=== PATIENT | male | born 1970 | race Two or more races ===

== ENCOUNTER → 2020-06-23 13:32 | Outpatient (BNVA) | payer OTHER, SELFPAY | PROVIDERS: PCP Internal Medicine; Visit Provider Internal Medicine | DX: R07.2 Precordial pain (principal); E11.8 Type 2 diabetes mellitus with unspecified complications; I10 Essential (primary) hypertension; E78.5 Hyperlipidemia, unspecified | CPT/HCPCS: 93005; 99202 ==

== ENCOUNTER → 2020-07-12 08:09 | Outpatient (REF) | payer OTHER, SELFPAY ==
--- NOTE | ~2020-07-12 | NM_ITS ---
Myocardial perfusion study Indication: Precordial chest pain to evaluate for myocardial ischemia Technique: The patient was brought in for a Lexiscan perfusion study on 07/12/2020. Patient performed low-level exercise and was injected 0.4 mg of Lexiscan intravenously. Within a minute of injection, 30 mCi of sestamibi was given intravenously. Images were obtained using the SPECT gamma camera interlaced with the gating device. Images were obtained in supine position. Resting perfusion study was performed on 07/13/2020. Patient was administered 30 mCi of sestamibi intravenously at rest. Images were then obtained in supine position. Images obtained with and without CT attenuation. Total DLP 100 mGy-cm. Images were processed with the software and compared side to side in short axis, horizontal long axis and vertical long axis views. Findings: The stress perfusion study showed non attenuated images show minimally reduced uptake in the basal inferior wall of the LV myocardium. Remainder of the LV myocardium is normally perfused. Attenuation corrected images show minimal thinning of the distal anterior and mildly reduced uptake in the apical wall of the LV myocardium.. The gated study shows normal LV systolic function with calculated LVEF of 56%. LV cavity is normal in size. The gated study shows normal systolic wall thickening and contraction of segments. Resting study shows non attenuated images show no change in perfusion pattern compared to stress study. Gating at rest reveals normal systolic wall motion with ejection fraction at 54%. The findings are consistent with normal myocardial perfusion. NM/NM maria del rosario perf SPECT rest & str Impression: 1. Myocardial perfusion imaging study shows normal myocardial perfusion 2. Gated LVEF is 56% 3. Transient ischemic dilatation not present EKG is nondiagnostic for ischemia MIBI
--- NOTE | 2020-07-12 08:12 | CA_ITS ---
Acquisition Time: 2020-07-12 08:19:48 Total Exercise Time: 00:02:00 Test Indications: Chest Pain Medications: ASA HCTZ OMEPRAZOLE FARXIGA LORATADINE ROSUVASTATIN COLCHICINE Protocol: LEXISCAN Max HR: 099 BPM 58% of Pred: 169 BPM Max BP: 122/070 mmHG Max Work Load: 1.0 METS Pharmacological stress test using Lexiscan while sitting and kicking his feet. Pt tolerated well, reports chest thightness after Lexiscan injection that resolves in recovery. EKG with no arrhythmia, Non-diagnostic for ischemia. Nuclear images to follow. Normotensive response to test. Test reviewed with Dr. Kaba. Referred By: Alberto Riddle Overread By: Katty Rodriguez NP
== END ==
LOC: HO.CARD 08:09
PROVIDERS: PCP Internal Medicine; Visit Provider Internal Medicine
DX: R07.2 Precordial pain (principal)
CPT/HCPCS: 78452; 93016; 93017; 93018; A9500; J0280; J2785

== ENCOUNTER → 2020-08-17 08:18 | Outpatient (REF) | payer OTHER, SELFPAY ==
--- NOTE | 2020-08-17 08:21 | CA_ITS ---
Transthoracic Echocardiogram Patient (Last, First, Middle): Bj Myers, Gender: Male Date of : 1970 Age: 50 Procedure Date: 08/17/2020 Procedure Type: Transthoracic Echocardiogram Location: OP Height: 167.64 cm Weight: 81.65 kg BSA: 1.91 m2 Heart Rate: bpm BP: 114 / 74 mmHg Regulator Inspector: MICHELLE Olsen MD: Alberto Riddle MD Bale Tie Machine Operator: Kumar Kaba MD Symptoms: R07.2 - Precordial pain Study Quality: Good ECG Rhythm: Sinus Conclusions: - Normal study Findings Left Ventricle Normal left ventricular size, thickness, and systolic function. The visually estimated ejection fraction is between 60-65%. Spectral Doppler is indicative of a normal filling pattern. Right Ventricle Normal right ventricular cavity size and systolic function. Atria Both atria are normal in size. There is no evidence of interatrial shunt. Aortic Valve Normal aortic valve structure and function. There is no aortic valve stenosis. There is no aortic valve regurgitation. Mitral Valve Normal mitral valve structure and function. There is trace mitral valve regurgitation. There is no mitral valve stenosis. Pulmonic Valve The pulmonic valve was not well visualized. Tricuspid Valve Normal tricuspid valve structure. There is trace tricuspid valve regurgitation. Great Vessels All visible segments of the aorta are normal in size. The pulmonary artery was not well visualized. Venous The inferior vena cava is normal in size and collapses greater than 50% with inspiration. Pericardium/Pleural There is no evidence of pericardial effusion. Prior Study Comparison No prior study available for comparison. Measurements 2D Linear Measurements RVIDd: 2.80 RVIDd Index: 1.47 IVSd: 1.20 0.6-0.9/0.6-1.0 cm LVIDd: 4.57 3.9-5.3/4.2-5.9 cm LVIDd Index: 2.39 2.4-3.2/2.2-3.1 cm/m2 LVIDs: 3.23 2.0-3.6 cm LVPWd: 0.87 0.7-1.1 cm Ao Root: 3.30 2.1-3.5 cm LA Diam: 2.90 2.7-3.8/3.0-4.0 cm LAIDs Index: 1.52 1.5-2.3 cm/m2 LV Mass: 204.79 67-162/88-224 g LV Mass Index: 107.22 43-95/49-115 g/m2 LVOT Diam: 2.10 3.0+(-)1.3 cm 2D Systolic Function EF 4C: 57.60 >55% EF 2C: 55.90 >55% Mitral Valve MV Pk E: 0.70 MV PK A: 0.52 MV Decel Time: 192.00 E/A: 1.30 E'Lateral: 10.20 E'Medial: 6.42 E/E' Med: 10.90 E/E' Lat: 6.80 Aortic Valve AoV Pk Errol: 1.34 AoV Mn Errol: 0.92 AoV VTI: 0.23 AoV Pk Grad: 7.00 Aov Mn Grad: 4.00 PRISCILLA Cont.VTI: 2.43 LVOT LVOT Pk Errol: 0.83 LVOT Mn Errol: 0.54 LVOT VTI: 0.16 LVOT Pk Grad: 3.00 LVOT Mn Grad: 1.00 LVOT Diam: 2.10 LVOT Area: 3.46 Diastolic Function MV Pk E: 0.70 MV Pk A: 0.52 E/A: 1.30 E'Medial: 6.42 E/E' Med: 10.90 E' Laterial: 10.20 E/E' Lat: 6.80 Tricuspid Valve RA Press: 3.00 Great Vessels Aorta Ao Root-2D: 3.30 2.0-3.7 cm Ao Asc: 3.10 2.1-3.4 cm Ao Arch: 2.70 Updated in Other Vendor System with Status of Final Kumar Kaba MD electronically signed on 08/18/2020 2:18:03 PM with status of Final
== END ==
LOC: HO.CARD 08:18
PROVIDERS: Visit Provider Internal Medicine
DX: R07.2 Precordial pain (principal)
CPT/HCPCS: 93306

== ENCOUNTER 2020-08-23 07:54 | Outpatient (REF) | payer OTHER, SELFPAY ==
--- NOTE | 2020-08-23 13:45 | MHC.AU.ANO ---
Adult Audiological Evaluation Date of Visit: 08/23/20 Group Chief Operator Used: Not Applicable Reason for Appointment: Audiologic evaluation due to decreased hearing and blocked/pain sensation of the right ear. Bj reports this sensation has developed within the past 3 years and is not sure if it is progressive Does patient feel they have a hearing loss?: Yes If Yes, Which Ear?: Right Ear Has hearing been tested previously?: Yes Previous Hearing Test Results: [facility] - Results are not available for review Hearing Handicap Inventory: HHIE SCORE: 22 Based on HHIE score, patient has: Mild to moderate perceived hearing handicap Ear History: Recent Ear Pain: Right greater than left Family History of Hearing Loss?: Yes: Mother History of Ear Wax Buildup: Occasional both ears Bothersome Tinnitus/Ringing/Noises in Ears: Right greater than left Blocked/Full Sensation in Ear(s): Right greater than left History of occupational noise exposure?: Yes: [employer] History: History: No Medical History: Medical History: Diabetes, Heart Problems, High Blood Pressure, Migraines, Seizure Disorder, Stroke Medication List: Trulicity, Proventil HFA, EpiPen, Fluticasone Proplon/Salmeterol, Loratadine, Lantus Solostar, Gabapentin, Multivitamin, Omeprazole, Hydrochlorothiazide, Rosuvastatin Calcium, Farxiga, Verapamil HCI, Colchicine Otoscopy: Right Ear: Dark area on left lower quadrant of tympanic membrane Left Ear: Unremarkable Tympanometry: Tympanometry performed due to: To assess integrity of the middle ear system Right Ear: Hypercompliant Middle Ear System (Type Ad) Left Ear: Normal Middle Ear System (Type A) Acoustic Reflexes: Diagnostic equipment was not available Ipsilateral Probe Right: 500 Hz: Absent 1000 Hz: Absent 2000 Hz: Absent 4000 Hz: Absent Probe Left: 500 Hz: Present 1000 Hz: Present 2000 Hz: Present 4000 Hz: Present Otoacoustic Emissions Frequency Range Used: 1.6-8 kHz Right Ear Results: Present 1600 & 2000 Hz. Reduced 6880-2717 Hz. Absent 8000 Hz Analysis: Present emissions suggest normal cochlear function Reduced/absent emissions may be consequence of middle ear dysfunction Left Ear Results: Present Emissions Analysis: Present emissions suggest normal cochlear function Rules out peripheral hearing loss greater than a mild degree Results are consistent with degree and configuration of hearing loss Hearing Evaluation: Transducer(s) Used: Insert Earphones Bone Conduction Method: Conventional Audiometry Stimuli Used: Pure Tones Right Ear: Description of Hearing: Normal to borderline normal hearing thresholds with a conductive component noted at 3000 Hz Left Ear: Description of Hearing: Normal hearing thresholds through all frequencies Speech Recognition Threshold (SRT): Method Used: Monitored Live Voice Stimuli Used: Spondee Words Right Ear: 15 dB HL Left Ear: 10 dB HL Word Discrimination: Method: Recorded Lists Word Lists Used: NU-6 Right Ear: 84% at 55 dB HL Left Ear: 96% at 50 dB HL Recommendations: Referral to Ear, Nose, and Throat is recommended due to Otoscopic results for the right ear and Bj' symptoms. Audiological re-evaluation in 6 months. Will send a reminder card. Diagnosis: Primary Diagnosis: H69.91 Unspecified Eustachian Tube Dysfunction, Right Ear Secondary Diagnosis: H93.293 Abnormal Auditory Perception Services Performed: Comprehensive Audiological Evaluation (CPT 14020) Diagnostic Otoacoustic Emissions (CPT 75893, 26+TC) Tympanometry (CPT 57458) Signature: Provider: Karma Morgan, CCC-A
== END 2020-08-23 07:55 | disposition home or self-care (01) ==
LOC: HO.SH 07:54
PROVIDERS: Visit Provider Registered Nurse Community Health
DX: H69.91 Unspecified Eustachian tube disorder, right ear (principal); H93.293 Other abnormal auditory perceptions, bilateral
CPT/HCPCS: 92557; 92567; 92588

== ENCOUNTER → 2020-10-13 07:54 | Outpatient (BNVA) | payer OTHER, SELFPAY | PROVIDERS: Visit Provider Orthopaedic Surgery | DX: S66.322D Laceration of extensor muscle, fascia and tendon of right middle finger at wrist and hand level, subsequent encounter (principal) | CPT/HCPCS: 99202 ==

== ENCOUNTER 2020-10-19 08:14 | Day surgery (SDC) | payer OTHER, SELFPAY ==
--- NOTE | 2020-10-18 09:09 | HO.ANESPROP2 ---
Documented by User: Adela Morris 10/18/20 09:13 HPI - Anesthesia Eval Consult details Narrative: 50yo M for Right Extensor Tendon Repair middle finger PMFSH Active Problems Active Problems: All Active Problems (Updated 10/13/20 @ 08:47 by Lena Viramontes MD) Laceration of extensor muscle, fascia and tendon of right middle finger at wrist and hand level, sequela (Acute) Other and unspecified hyperlipidemia (Acute) Essential hypertension (Acute) Type 2 diabetes mellitus with unspecified complications (Acute) Precordial chest pain (Acute) Past Medical History Medical History Asthma Essential hypertension Other and unspecified hyperlipidemia Type 2 diabetes mellitus with unspecified complications Family History Family History Father Heart disease Mother No problems noted. Paternal Grandfather Heart disease Surgical History Surgical History No pertinent past surgical history Social History Social History Patient Tobacco Use Status: Never used Tobacco Are you DNR?: No Advance Directives: No Advance Directives Information Provided: Yes Current occupational status: unemployed Current occupation: right hand/ Meds Allergies Allergy/AdvReac Type Severity Reaction Status Date / Time lisinopril [LISINOPRIL] Allergy Severe SWELLING, Verified 10/19/20 08:48 edema Home Medications Medication Instructions Recorded Confirmed Last Taken Type aspirin 81 mg tablet,delayed 81 mg PO DAILY 06/23/20 06/23/20 10/18/20 06:00 History release colchicine 0.6 mg capsule 0.6 mg PO BID 06/23/20 06/23/20 Unknown History dapagliflozin 10 mg tablet 10 mg PO DAILY 06/23/20 06/23/20 Unknown History (Farxiga) hydrochlorothiazide 25 mg tablet 25 mg PO DAILY 06/23/20 06/23/20 Unknown History loratadine 10 mg tablet (Allergy 10 mg PO DAILY 06/23/20 06/23/20 Unknown History Relief (loratadine)) multivitamin 1 tab PO DAILY 06/23/20 06/23/20 Unknown History omeprazole 20 mg capsule,delayed 20 mg PO DAILY 06/23/20 06/23/20 Unknown History release rosuvastatin 20 mg tablet 20 mg PO DAILY 06/23/20 06/23/20 Unknown History verapamil 300 mg capsule 24hr 300 mg PO BEDTIME 06/23/20 06/23/[address],ext.release Exam Exam Date and Time: October 18, 2020 0909 Narrative Narrative: EKG 06/2020 sinus rhythm at 82/Min; nonspecific ST-T changes; normal IN/borderline prolonged QTc MIBI 07/2020 NM maria del rosario perf SPECT rest & str Impression: ? 1.? Myocardial perfusion imaging study shows normal myocardial perfusion 2.? Gated LVEF is 56% 3. Transient ischemic dilatation not present ? EKG is nondiagnostic for ischemia ? ECHO 08/2020 Conclusions: - Normal study ? Assessment and Plan Assessment Anesthesia Assessment: Chart Reviewed Documented by User: Hira Ahumada MD 10/19/20 11:53 [facility] Past Medical History Medical History Asthma Essential hypertension Other and unspecified hyperlipidemia Type 2 diabetes mellitus with unspecified complications Family History Family History Father Heart disease Mother No problems noted. Paternal Grandfather Heart disease Family history of problems with anesthesia: No Surgical History Surgical History No pertinent past surgical history History of Problems with Anesthesia: No Social History Social History Patient Tobacco Use Status: Never used Tobacco Are you DNR?: No Advance Directives: No Advance Directives Information Provided: Yes Current occupational status: unemployed Current occupation: right hand/ Meds Allergies Allergy/AdvReac Type Severity Reaction Status Date / Time lisinopril [LISINOPRIL] Allergy Severe SWELLING, Verified 10/19/20 08:48 edema Home Medications Medication Instructions Recorded Confirmed Last Taken Type aspirin 81 mg tablet,delayed 81 mg PO DAILY 06/23/20 06/23/20 10/18/20 06:00 History release colchicine 0.6 mg capsule 0.6 mg PO BID 06/23/20 06/23/20 Unknown History dapagliflozin 10 mg tablet 10 mg PO DAILY 06/23/20 06/23/20 Unknown History (Farxiga) hydrochlorothiazide 25 mg tablet 25 mg PO DAILY 06/23/20 06/23/20 Unknown History loratadine 10 mg tablet (Allergy 10 mg PO DAILY 06/23/20 06/23/20 Unknown History Relief (loratadine)) multivitamin 1 tab PO DAILY 06/23/20 06/23/20 Unknown History omeprazole 20 mg capsule,delayed 20 mg PO DAILY 06/23/20 06/23/20 Unknown History release rosuvastatin 20 mg tablet 20 mg PO DAILY 06/23/20 06/23/20 Unknown History verapamil 300 mg capsule 24hr 300 mg PO BEDTIME 06/23/20 06/23/[address],ext.release Exam Airway Mallampati Class: II TM Dist: >3cm Neck ROM: Full Loose/Missing/Broken Teeth: No Heart: RRR Assessment and Plan Assessment Anesthesia Assessment: Anesthesia Plan Discussed Final Anesthetic Review Family History of Problems with Anesthesia: No History of Problems with Anesthesia: No NPO: Yes ASA Class: II Final Preanesthetic Review: No Changes in Pt Med Stat, Meds/Allgs Chart Reviewed, Consent Obtained/Reviewed and Anes Risks/Benef Reviewed Patient Risk: Low Procedure Risk: Low Anesthetic Plan Anesthetic Plan: GA and Regional Block Disposition: Standard PACU
[2020-10-19] VITALS (7 sets, daily range): BP systolic 121–138; BP diastolic 79–95; PULSE 67–74; RESP 12–18; TEMP 36.6–36.8; O2SAT 94–96; BMI 28.2
[2020-10-19 09:13] LABS: Glucose, Whole Blood 151 mg/dL (60-115)
[2020-10-19] MEDS: Lactated Ringers 1,000 ML 100 ML IVCONT (09:22)
--- NOTE | 2020-10-19 11:45 | MHC.SHP ---
Pre-Procedural Eval Section A Date of Service: 10/19/20 The patient is an INPATIENT: No Changes since office visit: No Cold of Flu in the past 2 weeks, No New Medical Problems, No Changes in Medication and No Patient answered all questions The History & Physical has been completed within 30 days and I have reviewed it.: Yes Section B Chief Complaint: laceration of extensor muscle r middle finger Allergies: Allergies Allergy/AdvReac Type Severity Reaction Status Date / Time lisinopril [LISINOPRIL] Allergy Severe SWELLING, Verified 10/19/20 08:48 edema Plan I have reviewed the history and physical and performed a pertinent physical examination on my patient. No changes have occurred unless specified.
--- NOTE | 2020-10-19 11:45 | W.PM.OPN ---
Operative Note Operative Note Date of Service: 10/19/20 Narrative: Operative Note Narrative: Preop diagnosis: 1. Right middle finger extensor tendon laceration at the MCP joint Postop diagnosis: Same Procedure: 1. Right middle finger extensor tendon repair at the MCP joint 2. Right middle finger extensor tendon tenolysis and debridement of scar tissue to facilitate secondary repair Surgeon: Lena Viramontes MD Anesthesia: Mac plus regional block Findings: The EDC tendon to the middle finger was lacerated at the proximal aspect of the extensor expansion. The tendon both proximally and distally was encased in scar tissue with a gap of approximately 1.2 cm between the tendon ends. The scar tissue was also adherent to the underlying capsule. There had been a rent in the capsule, and exploration of the joint showed a chondral lesion measuring approximately 5 mm in diameter over the dorsal proximal most aspect of the 3rd metacarpal head. This did not appear to involve the primary weight-bearing aspect of the metacarpal head. Implants: None Tourniquet time: 36 minutes EBL: 5.0 ml Specimen: None Drains: None Complications: None Disposition: Brought to the recovery room in stable condition Plan: Follow-up in 10-14 days for wound check, suture removal and placement in a finger spica cast with the MCP joint of the long finger at about 30?. The 4th and 5th MCP joints can be held in slightly more flexion. Anticipate discontinuance of the cast at 6 weeks, followed by outpatient hand therapy. Indications: The patient is a 50 year old man with a right middle finger extensor tendon laceration at the MCP joint that occurred approximately 2 months ago. . The risks and benefits of operative treatment, including but not limited to risk of damage to blood vessels, nerves, tendons, infection, recurrence, persistent pain or numbness, incomplete resolution of preoperative symptoms, or need for further surgery were discussed with the patient and they wished to proceed with surgery. Procedure: Once consent was obtained patient was brought back to the operating suite and placed in the operating table in a supine position. A regional block was performed by the anesthesia team. Perioperative antibiotics and anesthesia was administered by the anesthesia team. A tourniquet was applied to the proximal aspect of the right upper extremity and the limb was prepped and draped in a standard surgical fashion. The limb was elevated exsanguinated with Esmarch bandage and the tourniquet inflated to 250 mm of mercury for a total tourniquet time of 36 minutes. And incision was made utilizing the 1.5 cm oblique laceration scar over the dorsal aspect of the 3rd MCP joint. This was then extended longitudinally and distally from the ulnar edge of the laceration and longitudinally and proximally from the radial edge of the laceration. Incisions were made through the skin to the subcutaneous tissues using a 15. Blade. Careful dissection was they down to the level of the EDC tendon and extensor expansion over the MCP joint to the middle finger. There appeared to be a 1.2 cm gap between the lacerated tendon and its distal aspect. This laceration occurred in the proximal aspect of the extensor expansion. There was abundant scar tissue between the 2 ends of the tendon. I sharply debrided the tendon ends of this scar tissue and removed it. I developed the plane between the 3rd MCP joint capsule and the overlying extensor expansion. This injury caused a rent in the dorsal aspect of the 3rd MCP joint capsule. This was explored and the 3rd MCP joint was evaluated. There was an evident injury to the proximal dorsal chondral surface of the 3rd metacarpal head. It measured approximately 5 mm in diameter but was not within the primary look weight-bearing aspect of the 3rd metacarpal head. The weight-bearing aspect of the 3rd metacarpal head was evaluated and I did not see any injury to the surface. At this point the 3rd MCP joint and the wound was copiously irrigated with normal saline. I reapproximated the edges of the 3rd MCP joint capsule with some 4-0 Vicryl suture. I then performed a secondary repair of the EDC tendon to the middle finger using a 4 core suture technique and some 3 0 Ethibond suture material. This was reinforced with a running 5 0 Prolene stitch. I was very satisfied with our repair. The EDC tendon to the middle finger was noted to be slightly tighter than the adjacent EDC tendons, and it is felt that this will stretch out with hand therapy exercises which will begin after 6 weeks of healing. At this point the tourniquet was deflated and hemostasis obtained with a brief period of local pressure and bipolar electrocautery. The wound was copiously irrigated with normal saline. The skin edges were reapproximated with 5-0 nylon suture. The wound was infiltrated with some 0.5% plain Marcaine for postop pain control and a sterile dressing volar splint holding the index ring and small finger MCP joints in about 20? of flexion. The patient appears to have tolerated the procedure well and with no complications. All digits were well vascularized conclusion of the case.
== END 2020-10-19 14:30 ==
LOC: HO.SSS 08:14
PROVIDERS: PCP Internal Medicine; Visit Provider Orthopaedic Surgery
PROC: (CPT 26418; principal; 2020-10-19 10:10)
DX: S66.322A Laceration of extensor muscle, fascia and tendon of right middle finger at wrist and hand level, initial encounter (principal); W26.8XXA Contact with other sharp object(s), not elsewhere classified, initial encounter; Y93.89 Activity, other specified; Y92.59 Other trade areas as the place of occurrence of the external cause; Y99.9 Unspecified external cause status; J45.909 Unspecified asthma, uncomplicated; I10 Essential (primary) hypertension; E78.5 Hyperlipidemia, unspecified; E11.9 Type 2 diabetes mellitus without complications; Z79.84 Long term (current) use of oral hypoglycemic drugs; Z79.82 Long term (current) use of aspirin; Z79.899 Other long term (current) drug therapy; Z88.8 Allergy status to other drugs, medicaments and biological substances
CPT/HCPCS: 26418; 26445; 82947; J0690; J2250; J2405; J3010

== ENCOUNTER → 2020-10-27 10:29 | Outpatient (BNVA) | payer OTHER, SELFPAY | PROVIDERS: Visit Provider Orthopaedic Surgery | DX: S66.32 Laceration of extensor muscle, fascia and tendon of other and unspecified finger at wrist and hand level (principal) | CPT/HCPCS: 99212 ==

== ENCOUNTER → 2020-11-03 08:01 | Outpatient (BNVA) | payer OTHER, SELFPAY | PROVIDERS: PCP Internal Medicine; Visit Provider Orthopaedic Surgery | DX: S66.322D Laceration of extensor muscle, fascia and tendon of right middle finger at wrist and hand level, subsequent encounter (principal) | CPT/HCPCS: 99212 ==

== ENCOUNTER → 2020-12-01 08:16 | Outpatient (BNVA) | payer OTHER, SELFPAY | PROVIDERS: Visit Provider Orthopaedic Surgery | DX: S66.322D Laceration of extensor muscle, fascia and tendon of right middle finger at wrist and hand level, subsequent encounter (principal) | CPT/HCPCS: 99212 ==

== ENCOUNTER 2020-12-07 07:30 | Outpatient (RCR) | payer OTHER, SELFPAY ==
--- NOTE | 2020-11-29 08:05 | MHC.OT.OP ---
[address] [phone] F: [phone] Occupational Therapy Progress Note Diagnosis: R D3 MCP Zone 5 EDC laceration, post-op repair Date of Surgery: 10/19/20 Date of Evaluation: 11/11/20 Treatments to Date: 6 Subjective: It's going well Pain Score: 0 Pain Location: Right volar D3 MCP - denies pain Objective Measures: WFL Status: Progressing Assessment: 6 weeks post-op. Healing well with minimal edema localized to dorsal D3 MCP. Pt has had good compliance w/ orthosis wear and protection of repair, now weaning from orthosis and able to complete full active ROM. He is motivated w/ good follow through w/ HEP, scar management and protection of repair. Short Term Goals: Ind w/ orthosis management (met) Ind w/ HEP (met) Good protection of repair (met) Ind w/ scar management techniques (met) Pt to demo active ext to 0 (met) Stretch Box Tender Goals: Pt to utilize right hand for most ADL Full digit flex tip-DPC (met) Pt to maintain full active digit extension when needed for daily activities Quickdash score 30 Frequency and Duration: The patient will be seen 1x/wk for 2 wks Treatment Plan: Therapeutic Exercise Therapeutic Activity Home Exercise Program Patient Education Desensitization/Sensory Re-ed Edema Control ADL Training Paraffin Fluidotherapy MHP Cold Packs Soft Tissue Mobilization Kinesiotaping Paper tape for scar management Electronically Signed By: Arianne Schaffer OTR/L
--- NOTE | 2020-12-07 07:47 | MHC.OT.DC ---
[address] [phone] F: [phone] Occupational Therapy Discharge Note Provider: Dr Viramontes Diagnosis: R D3 MCP Zone 5 EDC laceration, post-op repair Date of Surgery: 10/19/20 Date of Evaluation: 11/11/20 Date of Discharge: 12/07/20 Treatments to Date: 8 Discharge Status: Achieved Goals Improved Function Independent with HEP Discharge Summary: 7 weeks post-op, doing very well. Orthosis discharged and patient able to participate in most daily activities, still avoiding heavy lifting at this time. He is motivated w/ good follow through w/ HEP, scar management and protection of repair; good range and day to day use of hand w/ very mild pain only occasionally. Electronically Signed By: Arianne Schaffer OTR/L Please Sign and return to therapist, thank you for your referral.
== END 2020-12-07 07:56 | disposition home or self-care (01) ==
LOC: HO.OT 07:30
PROVIDERS: Visit Provider Orthopaedic Surgery
DX: S66.32 Laceration of extensor muscle, fascia and tendon of other and unspecified finger at wrist and hand level (principal)
CPT/HCPCS: 29125; 97110; 97140; 97165; 97530; 97760

== ENCOUNTER → 2021-12-13 14:15 | Outpatient (BNVA) | payer OTHER, SELFPAY | PROVIDERS: PCP Internal Medicine; Visit Provider Internal Medicine | DX: R07.2 Precordial pain (principal); E11.8 Type 2 diabetes mellitus with unspecified complications; I10 Essential (primary) hypertension; E78.5 Hyperlipidemia, unspecified; Z79.84 Long term (current) use of oral hypoglycemic drugs; Z79.899 Other long term (current) drug therapy | CPT/HCPCS: 93005; 99212 ==

== ENCOUNTER → 2022-01-06 07:42 | Outpatient (REF) | payer OTHER, SELFPAY ==
--- NOTE | ~2022-01-06 | NM_ITS ---
Exercise Myocardial perfusion study Indication: Precordial chest pain to evaluate for myocardial ischemia Technique: The patient was brought in for an exercise perfusion study on 01/06/2022. Patient performed exercise as per Ovidio protocol and was injected 25 mCi of sestamibi was given intravenously one target HR was achieved. Images were obtained using the SPECT gamma camera interlaced with the gating device. Images were obtained in supine position. Resting perfusion study was performed on 01/10/2022. Patient was administered 25 mCi of sestamibi intravenously at rest. Images were then obtained in supine position. Images obtained with and without CT attenuation. Total DLP 98 mGy-cm. Images were processed with the software and compared side to side in short axis, horizontal long axis and vertical long axis views. Findings: The stress perfusion study showed non attenuated images show minimally reduced uptake in the basal inferior wall of the LV myocardium. Remainder of the LV myocardium is normally perfused. Attenuation corrected images show mildly reduced uptake in the apex of the LV myocardium. The gated study shows normal LV systolic function with calculated LVEF of 54%. LV cavity is normal in size. The gated study shows normal systolic wall thickening and contraction of all segments. There is no transient ischemic dilation. Resting study shows no change in perfusion study. Gating at rest reveals normal systolic wall motion with ejection fraction at 48%. The findings are consistent with normal myocardial perfusion. NM/NM maria del rosario perf SPECT rest & str Impression: 1. Normal myocardial perfusion 2. Gated LVEF is 54% 3. Transient ischemic dilatation not present Stress EKG is negative for ischemia
--- NOTE | 2022-01-06 07:45 | CA_ITS ---
Acquisition Time: 2022-01-06 07:54:59 Total Exercise Time: 00:08:16 Test Indications: CP Medications: SEE CHART Protocol: MIGUEL ANGEL Max HR: 136 BPM 80% of Pred: 168 BPM Max BP: 162/082 mmHG Max Work Load: 10.1 METS Exercise stress test with exercise 8 min 16 sec of Miguel Angel protocol, achieving 80% MPHR, 10.1 METs with moderate shortnes of breath and 4/10 left chest pressure that was coming and going, with need to stop due to exercising to his limit, with isolated PACs, with normotensive response to exercise, without EKG changes meeting criteria for ischemia. In recovery his chest discomfort continued to come and go, last a few seconds at a time. Nuclear images pending. Test reviewed with Dr Kaba. Referred By: Alberto Riddle Overread By: CHARMAINE CALDERON
== END ==
LOC: HO.CARD 07:42
PROVIDERS: PCP Internal Medicine; Visit Provider Internal Medicine
DX: R07.2 Precordial pain (principal)
CPT/HCPCS: 78452; 93017; A9500

== ENCOUNTER → 2022-02-07 13:53 | Outpatient (BNVA) | payer OTHER, SELFPAY | PROVIDERS: PCP Internal Medicine; Referring Provider Internal Medicine; Visit Provider Nurse Practitioner Family | DX: R07.2 Precordial pain (principal); I10 Essential (primary) hypertension; E78.5 Hyperlipidemia, unspecified | CPT/HCPCS: 99212 ==

== ENCOUNTER → 2022-06-13 14:42 | Outpatient (BNVA) | payer OTHER, SELFPAY | PROVIDERS: PCP Internal Medicine; Referring Provider Internal Medicine; Visit Provider Nurse Practitioner Family | DX: R07.2 Precordial pain (principal); I10 Essential (primary) hypertension; E78.5 Hyperlipidemia, unspecified | CPT/HCPCS: 99212 ==

== ENCOUNTER 2022-09-26 11:14 | Outpatient (REF) | payer OTHER, SELFPAY ==
[2022-09-26 15:23] LABS: Appearance Urine Clear; Color Urine Yellow; Glucose Urine UA >=1000 mg/dL (Negative); Leukocyte Esterase Urine Negative (Negative); Nitrite Urine Negative (Negative); Specific Gravity - Urine 1.025 (1.005-1.025); UMIC TRIGGER UA YES; Urine Blood Negative (Negative); Urine Ketones Negative (Negative); Urine Protein Negative (Neg-Trace)
[2022-09-26 15:27] LABS: Bacteria Urine None Seen (None Seen); Hyaline Casts Urine 0-2 /LPF (0-2); RBC Urine 0-2 /HPF (0-2); Squamous Epithelial Cell Urine 0-2 /HPF (0-2); WBC Urine 0-5 /HPF (0-5)
[2022-09-26 15:44] LABS: Prostate Specific Antigen 0.26 ng/mL (<0.05-4.0)
== END 2022-09-26 11:15 | disposition home or self-care (01) ==
LOC: HO.CHCLDS 11:14
PROVIDERS: Visit Provider Internal Medicine
DX: Z12.5 Encounter for screening for malignant neoplasm of prostate (principal); E11.65 Type 2 diabetes mellitus with hyperglycemia; Z79.4 Long term (current) use of insulin; Z80.9 Family history of malignant neoplasm, unspecified
CPT/HCPCS: 36415; 81001; 84153

== ENCOUNTER 2022-11-23 10:47 | Outpatient (REF) | payer OTHER, SELFPAY ==
[2022-11-24 09:15] LABS: HIV AB/AG Nonreactive (Nonreactive); HIV Num 1 0.04 S/CO (0.00-0.99); ~HepC Num1 0.12 S/CO (0.00-0.79); ~Hepatitis C Antibody Nonreactive (Nonreactive)
== END 2022-11-23 10:48 | disposition home or self-care (01) ==
LOC: HO.CHCLDS 10:47
PROVIDERS: Visit Provider Internal Medicine
DX: E11.65 Type 2 diabetes mellitus with hyperglycemia (principal); Z79.4 Long term (current) use of insulin
CPT/HCPCS: 36415; 86803; 87389

== ENCOUNTER 2022-12-19 13:31 | Outpatient (AMB) | payer OTHER, SELFPAY ==
--- NOTE | 2022-12-19 13:57 | A.OFFVIS_ITS ---
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 Allergies lisinopril [LISINOPRIL] Allergy (Severe, Verified 12/19/22 14:04) SWELLING, edema bees Allergy (Severe, Uncoded 06/13/22 14:55) Anaphylaxis Medication List - Last Reconciled 12/19/22 by Leah Quezada NP-C aspirin 81 mg PO DAILY colchicine (gout) 0.6 mg PO BID dapagliflozin propanediol (Farxiga) 10 mg PO DAILY dulaglutide (Trulicity) mg subcut QWEEK fluticasone propion-salmeterol 500-50 mcg/dose (Wixela Inhub) 1 ea inhalation BID gabapentin 600 mg PO TID ketotifen fumarate 0.025%(0.035%) 1 drp ophthalmic (eye) BID multivitamin 1 tab PO DAILY omeprazole 20 mg PO DAILY potassium chloride ER 20 mEq PO QAM rosuvastatin 20 mg PO DAILY verapamil ER 300 mg PO BEDTIME HPI 6 mth f/up HPI Details Bj is a 52-year-old male with past medical history of hypertension, hyperlipidemia, diabetes, family history of CAD, atypical chest pains who presents for follow-up. Today he reports that since his last visit he has undergone 3 different surgical procedures. He had a total hip replacement, arthroscopic surgery on his left knee and surgery on his left arm. He is recovering well from these procedures. He does not recall being told of any cardiac complications during his procedures. He has not been having any concerning chest discomfort at rest or with activity. He denies significant shortness of breath, palpitations, presyncope, syncope, falls, PND, orthopnea or edema. He admits to being sedentary. He ambulates with a cane. Taking meds as directed. He wants to continue with cardiology follow-up. [facility] Medical History Asthma Other and unspecified hyperlipidemia Essential hypertension Type 2 diabetes mellitus with unspecified complications Surgical History History of total left hip replacement History of carpal tunnel surgery of left wrist Family History Father Heart disease Mother No problems noted. Paternal Grandfather Heart disease Social History Alcohol intake: never Patient Tobacco Use Status: Never used Tobacco Current occupational status: unemployed Current occupation: right hand/ Review of Systems Const All systems reviewed & are unremarkable except as noted in HPI and below ENT Denies dizziness Card Denies chest pain, Denies chest pain at rest, Denies chest pain with activity, Denies rapid heart rate, Denies pedal edema, Denies edema, Denies leg edema, Denies lightheadedness, Denies palpitations, Reports dyspnea, Denies dyspnea on exertion and Denies orthopnea Resp Denies cough, Reports dyspnea and Denies dyspnea on exertion GI Denies hematochezia and Denies change in stool character Musc Details: Recent hip, knee and elbow surgery Denies abnormal gait, Reports limited range of motion, Reports muscle cramps, Denies muscle weakness, Denies numbness, Denies radiating pain into limb, Denies stiffness and Denies tingling Neuro Denies abnormal gait, Denies dizziness, Denies numbness and Denies tingling Endo Denies palpitations Physical Exam Vital Signs: Last Vital Signs Pulse 72 12/19/22 13:59 BP 120/82 12/19/22 13:59 BMI result Body Mass Index 31.0 Const General: cooperative, healthy appearing, comfortable and no acute distress Orientation/consciousness: patient oriented x3 Neck Neck: Yes normal visual inspection Resp Effort & Inspection: normal respiratory effort Auscultation: clear to auscultation bilaterally, no crackles, no rales, no rhonchi and no wheezes Cardio Jugular venous distension: no JVD Rate: regular rate Rhythm: regular rhythm Heart sounds: S1 normal heart sound present, S2 normal heart sound present, no murmurs and no rubs Neuro General: patient oriented x3 Extrem Other: Wearing support brace on left knee General: Yes normal to inspection Psych Appearance: grossly normal Mental Status: mental status grossly normal Speech and movement: Normal speech and movement present Office Procedures EKG Details: Today, read by me, normal sinus rhythm, no acute ST or T-wave abnormalities, rate 72 [id number], Complete Assessment & Plan Assessment & Plan (1) Precordial chest pain: Code(s): R07.2 - Precordial pain Plan: Prior reports of Atypical left chest discomfort, sharp stabbing pain. Also discomfort that is reproducible with palpation of the left chest region. Echocardiogram was done 08/17/2020 showing EF 60-65%, no regional wall motion abnormalities. EKG done 12/13/2021 showing normal sinus rhythm, left axis deviation, rate 78, no acute ST or T-wave abnormalities. Exercise nuclear stress test done on 01/10/2022 with good exercise capacity, report of chest discomfort that comes and goes and is worse with palpation of the area and no EKG changes of ischemia and normal myocardial perfusion imaging. Today he reports no anginal sounding symptoms. He has undergone 3 surgical procedures with no reported cardiac complications. Reviewed signs and symptoms of angina with him. He does have multiple cardiac risk factors. Spent time reviewing risk factor modification. The need for good blood sugar, blood pressure and cholesterol control reviewed. Activity as tolerated, keep weight controlled. He would like to follow with Cardiology routinely. Will arrange for a 9 month follow-up, sooner if needed (2) Essential hypertension: Code(s): I10 - Essential (primary) hypertension Plan: Well controlled at present time, no changes (3) Other and unspecified hyperlipidemia: Code(s): E78.5 - Hyperlipidemia, unspecified Plan: Maybee LDL goal less than 70 and patient with diabetes. Continue rosuvastatin. Labs followed by his PCP Coding Level of Care Code Est Pt Level 3 (15083) Diagnoses Precordial chest pain R07.2 Essential hypertension I10 Other and unspecified hyperlipidemia E78.5 CPT Codes EKG - CPT: [id number], Complete ([id number]) Time Spent (min) 22
[2022-12-19 13:59] VITALS: BP 120/82; PULSE 72; BMI 31.0
== END 2022-12-19 14:35 | disposition home or self-care (01) ==
PROVIDERS: PCP Internal Medicine; Visit Provider Nurse Practitioner Family
DX: R07.2 Precordial pain (principal)
CPT/HCPCS: 93010; 99213

== ENCOUNTER → 2022-12-19 13:31 | Outpatient (BNVA) | payer OTHER, SELFPAY | PROVIDERS: PCP Internal Medicine; Visit Provider Nurse Practitioner Family | DX: R07.2 Precordial pain (principal); I10 Essential (primary) hypertension; E78.5 Hyperlipidemia, unspecified; Z79.899 Other long term (current) drug therapy | CPT/HCPCS: 93005; 99212 ==

== ENCOUNTER 2023-02-22 11:19 | Outpatient (REF) | payer OTHER, SELFPAY ==
[2023-02-22 15:18] LABS: Microalbumin Urine < 5.0 mg/L
== END 2023-02-22 11:20 | disposition home or self-care (01) ==
LOC: HO.CHCLDS 11:19
PROVIDERS: Visit Provider Internal Medicine
DX: E11.65 Type 2 diabetes mellitus with hyperglycemia (principal); Z79.4 Long term (current) use of insulin
CPT/HCPCS: 82043; 82570

== ENCOUNTER 2023-03-20 14:28 | Outpatient (REF) | payer OTHER, SELFPAY ==
[2023-03-20 17:39] LABS: MANUAL DIFF FLAG NO
[2023-03-20 17:42] LABS: Basophils Percent Auto 0.5 % (0-2); Eosinophils Absolute Auto 0.3 X10*3/uL (0.0-0.4); Eosinophils Percent Auto 4.4 % (0-4); Hematocrit 41.7 % (42.0-52.0); Hemoglobin 13.6 g/dl (14.0-18.0); Imm Gran Abs Auto 0.01 X10*3/uL (0.00-0.03); Imm Gran Pct Auto 0.2 % (0.0-0.4); Lymphocytes Absolute Auto 2.3 X10*3/uL (1.2-4.9); Lymphocytes Percent Auto 40.3 % (20-40); Mean Corpuscular HGB Conc 32.6 g/dl (31.0-36.0); Mean Corpuscular Hemoglobin 27.4 pg (27.0-33.0); Mean Corpuscular Volume 83.9 fL (80.0-98.0); Mean Platelet Volume 9.8 fL (9.4-12.4); Monocytes Absolute Auto 0.5 X10*3/uL (0.1-1.2); Monocytes Percent Auto 9.3 % (2-11); Neutrophils Absolute Auto 2.6 x10*3/uL (2.0-8.3); Neutrophils Percent Auto 45.3 % (45-73); Platelet Count 369 X10*3/uL (160-400); Red Blood Count 4.97 X10*6/uL (4.60-5.80); Red Cell Distribution Width 13.6 % (11.0-16.0); White Blood Count 5.7 X10*3/uL (4.8-10.8)
== END 2023-03-20 14:29 | disposition home or self-care (01) ==
LOC: HO.CHCLDS 14:28
PROVIDERS: Visit Provider Internal Medicine
DX: R05.1 Acute cough (principal)
CPT/HCPCS: 36415; 85025

== ENCOUNTER 2023-04-10 12:42 | Outpatient (REF) | payer OTHER, SELFPAY ==
[2023-04-10 15:21] LABS: Anion Gap 12 (12-20); Blood Urea Nitrogen 7 mg/dL (9-16); Calcium 8.8 mg/dL (8.4-10.2); Carbon Dioxide 26 mmol/L (22-29); Chloride 106 mmol/L (96-108); Estimated Glomerular Filt Rate > 60; Glucose Random 72 mg/dL (60-115); Potassium 3.6 mmol/L (3.3-5.1); Sodium 140 mmol/L (135-145)
[2023-04-13 09:13] LABS: TS Negative Control Passed; TS Panel A 0; TS Panel B 0; TS Positive Control Passed; TSpotTB Negative (Negative)
== END 2023-04-10 12:43 | disposition home or self-care (01) ==
LOC: HO.CHCLDS 12:42
PROVIDERS: Visit Provider Internal Medicine
DX: R53.1 Weakness (principal)
CPT/HCPCS: 36415; 80048; 86481

== ENCOUNTER 2023-04-16 19:08 | Emergency (ER) | payer OTHER, SELFPAY ==
--- NOTE | ~2023-04-16 | CT_ITS ---
EXAMINATION: CT head/brain wo IV con CLINICAL INFORMATION: Reason for Exam dizziness, LUE numbness COMPARISON: None available TECHNIQUE: Contiguous axial imaging was performed from the skull base to vertex without intravenous contrast. Sagittal and coronal reformatted images were obtained. This CT examination was performed using dose optimization techniques as appropriate, variously including the following: * Automated exposure control * Adjustment of mA and/or kV according to patient size (this includes techniques or standardized protocols for targeted exams where dose is matched to indication/reason for exam; i.e. extremities or head) Use of iterative reconstruction technique DLP: 627.42 mGy-cm mGy-cm FINDINGS: There is no evidence of acute intracranial hemorrhage. No mass-effect or ventricular shift is noted. No acute, territorial loss of hess-white differentiation. The ventricles and sulci are appropriate in size and configuration for the patient's stated age. No depressed calvarial fracture. Visualized paranasal sinuses are well-aerated. The mastoid air cells are clear. CT/CT head/brain wo IV con IMPRESSION: No acute intracranial hemorrhage or territorial loss of hess-white differentiation.
--- NOTE | ~2023-04-16 | XR_ITS ---
EXAMINATION: XR CHEST CLINICAL INFORMATION: Chest pain COMPARISON: None available. TECHNIQUE: Frontal view of the chest was obtained. FINDINGS: No focal consolidation. No pneumothorax. Trachea is midline. Cardiac mediastinal silhouette is not enlarged. No large pleural effusion. Osseous structures are intact. Soft tissues are unremarkable. XR/XR chest 1V IMPRESSION: No acute cardiopulmonary process.
[2023-04-16 19:16] VITALS: BP 147/101; PULSE 84; RESP 18; TEMP 37; O2SAT 97; BMI 30.3
--- NOTE | 2023-04-16 19:16 | ED_ITS ---
HPI - General Adult General Chief complaint: Chest Pain Stated complaint: hypertension, low blood sugars Time Seen by Provider: 04/16/23 23:52 History of Present Illness HPI narrative: The patient is a very pleasant 52-year-old male who has a history of hypertension and type 2 diabetes. He has also had orthopedic problems and had a right hip replacement 3 years ago. He has also had surgery on the left arm for carpal tunnel surgery. The patient says that last week on Sunday, 1 week ago, he had a very high blood pressure, something like 200/100. He says that he went to his regular doctor's office the next day and had some outpatient testing scheduled including a CT scan of his head which is scheduled for tomorrow. The patient has been having headaches. He has also been having chest pain. He has been having symptoms of left sided numbness intermittently. He has been having intermittent visual blurriness. The patient feels that his blood pressures have been quite labile. His blood pressure was 200/100 one week ago last Sunday. However earlier today it was 104/59. Patient is on verapamil, hydralazine, and spironolactone, among other medications. This evening the patient had a heavy pressure-like feeling on his chest and decided come to the emergency room. Related Data Home Medications Medication Instructions Recorded Confirmed aspirin 81 mg tablet,delayed 81 mg PO DAILY 06/23/20 06/13/22 release colchicine 0.6 mg capsule 0.6 mg PO BID 06/23/20 12/19/22 dapagliflozin propanediol 10 mg 10 mg PO DAILY 06/23/20 12/19/22 tablet (Farxiga) multivitamin 1 tab PO DAILY 06/23/20 12/19/22 omeprazole 20 mg capsule,delayed 20 mg PO DAILY 06/23/20 12/19/22 release rosuvastatin 20 mg tablet 20 mg PO DAILY 06/23/20 12/19/22 verapamil 300 mg capsule 24hr 300 mg PO BEDTIME 06/23/20 12/19/[address],ext.release dulaglutide 4.5 mg/0.5 mL mg subcut QWEEK 12/13/21 12/19/22 subcutaneous [facility] ([facility]) fluticasone 500 mcg-salmeterol 50 1 ea inhalation BID 12/13/21 12/19/22 mcg/dose blistr powdr for inhalation (Wixela Inhub) gabapentin 600 mg tablet 600 mg PO TID 12/13/21 12/19/22 ketotifen fumarate 0.025 % (0.035 1 drp ophthalmic (eye) BID 12/13/21 12/19/22 %) eye drops potassium chloride 20 mEq 20 meq PO QAM 06/13/22 12/19/22 tablet,extended release(part/cryst) Allergies Allergy/AdvReac Type Severity Reaction Status Date / Time lisinopril [LISINOPRIL] Allergy Severe SWELLING, Verified 12/19/22 14:04 edema bees Allergy Severe Anaphylaxis Uncoded 06/13/22 14:55 Review of Systems 2 Review of Systems: Yes all other systems are reviewed and are negative [facility] Past Medical History Medical History Asthma Other and unspecified hyperlipidemia Essential hypertension Type 2 diabetes mellitus with unspecified complications Surgical History History of total left hip replacement History of carpal tunnel surgery of left wrist Family History Family History Father Heart disease Mother No problems noted. Paternal Grandfather Heart disease Social History Social History Alcohol intake: never Patient Tobacco Use Status: Never used Tobacco Current occupational status: unemployed Current occupation: right hand/ Physical Exam ED Vital Signs: Vital Signs - 24 hr 04/16/23 19:16 04/16/23 21:35 Temperature 98.6 F 98.9 F Pulse Rate 84 84 Respiratory Rate 18 18 Blood Pressure 147/101 H 156/100 H Pulse Oximetry 97 96 Oxygen Delivery Method Room Air Room Air BMI result Body Mass Index 30.3 Const Other: The patient is awake, alert, pleasant, cooperative. He does not appear ill or in distress. HENMT Other: Face is symmetrical, mucous membranes moist, tongue is midline. Eyes Other: Pupils are round, equal, and reactive to light, extraocular movements are intact, visual bishop are intact to confrontation. Neck Neck: Yes no JVD Resp Effort & Inspection: normal respiratory effort Auscultation: clear to auscultation bilaterally Cardio Rate: regular rate Rhythm: regular rhythm Heart sounds: S1 normal heart sound present and S2 normal heart sound present GI Other: Abdomen is soft and nontender Skin Other: Skin is warm and dry unremarkable Neuro Other: The patient is awake, alert, oriented, appropriate. Eye movements are intact. Visual bishop are intact. Face is symmetrical. Speech is clear and normal. Strength is 5/5 in all 4 extremities. No pronator drift. Finger-nose is normal. Patient's gait is steady although he walks with a cane because of chronic right hip pain. He seems neurologically intact with an NIH stroke scale of 0. Extrem Other: No peripheral edema. Excellent pulses in the feet. Course Course Course Narrative: This is an RME: Additional HPI, ROS, PE not included below will be deferred to primary provider. 52-year-old with headache, dizziness, hypertension, left arm numbness for the past week or so intermittently. Has been seen by PCP and has been managed outpatient for hypertension. Med compliant he states. Also reporting substernal nonradiating chest pain. And some shortness of breath LKWT - 1 week ago NIHSS-0 Plan- labs, imaging Medications Administered Discontinued Medications Generic Name Dose Route Start Last Admin Trade Name Freq PRN Reason Stop Dose Admin Acetaminophen 975 mg 04/17/23 00:20 04/17/23 00:41 Acetaminophen 325 Mg Tablet PO 04/17/23 00:21 975 mg ONCE ONE Administration Medical Decision Making Medical Decision Making [facility] Narrative: The patient is a 52-year-old male with a history of type 2 diabetes and hypertension who has been having symptoms for a week of headaches, chest pain, and labile blood pressures. He has an unremarkable neurological exam. No findings suggestive of a stroke. His description of his symptoms does not really suggest a TIA. He has a headache associated with photophobia but does not seem toxic and has a supple neck. Head CT was ordered prior to my evaluation which was unremarkable. Other labs are unremarkable including flat troponins. EKG is unremarkable. The patient's blood pressure at triage was 147/101. It came down to 132/87 without treatment. The patient was given Tylenol for his headache. I think he may be discharged to follow up with his regular doctor. I do not have a high suspicion for a subarachnoid hemorrhage, acute coronary syndrome, or stroke-like syndrome. Lab Data 04/16/23 19:51 04/16/23 19:51 Labs: Lab Results 04/16/23 04/16/23 04/17/23 Range/Units 19:46 19:51 00:36 WBC 6.0 (4.8-10.8) X10*3/uL RBC 5.46 (4.60-5.80) X10*6/uL Hgb 14.6 (14.0-18.0) g/dl Hct 44.1 (42.0-52.0) % MCV 80.8 (80.0-98.0) fL MCH 26.7 L (27.0-33.0) pg MCHC 33.1 (31.0-36.0) g/dl RDW 13.2 (11.0-16.0) % Plt Count 367 (160-400) X10*3/uL MPV 8.8 L (9.4-12.4) fL Immature Gran % (Auto) 0.2 (0.0-0.4) % Neut % (Auto) 36.4 L (45-73) % Lymph % (Auto) 46.6 H (20-40) % Lassen % (Auto) 10.1 (2-11) % Eos % (Auto) 6.0 H (0-4) % Baso % (Auto) 0.7 (0-2) % Lymph # (Auto) 2.8 (1.2-4.9) X10*3/uL Lassen # (Auto) 0.6 (0.1-1.2) X10*3/uL Eos # (Auto) 0.4 (0.0-0.4) X10*3/uL Baso # (Auto) 0.0 (0.0-0.2) X10*3/uL Abs Immat Gran (auto) 0.01 (0.00-0.03) X10*3/uL Absolute Neuts (auto) 2.2 (2.0-8.3) x10*3/uL Absolute Nucleated RBC 0.000 (0.0-0.012) X10*3/uL Nucleated RBC % (auto) 0.0 (0.0-0.2) /100WBC PT 11.4 (11.1-13.3) SEC INR 0.9 (0.9-1.1) Sodium 139 (135-145) mmol/L Potassium 3.7 (3.3-5.1) mmol/L Chloride 107 (96-108) mmol/L Carbon Dioxide 23 (22-29) mmol/L Anion Gap 13 (12-20) BUN 7 L (9-16) mg/dL Creatinine 1.03 (0.5-1.4) mg/dL Estim Creat Clear Calc 84.8 Estimated GFR > 60 POC Glucose 140 H (60-115) mg/dL Random Glucose 144 H (60-115) mg/dL Calcium 8.5 (8.4-10.2) mg/dL Total Bilirubin 0.3 (0.0-1.0) mg/dL AST 21 (5-37) U/L ALT 23 (0-40) U/L Alkaline Phosphatase 86 (39-117) U/L Troponin I High Sens 4.1 5.4 (<3.5-35.0) ng/L Total Protein 7.1 (6.5-8.0) g/dL Albumin 3.9 (3.5-5.0) g/dL Independent Interpretation I performed an independent interpretation of an: EKG Interpretation: EKG at 19:23 shows normal sinus rhythm at 85 beats per minute. There is left anterior fascicular block. No definite acute ischemic changes. No significant change from EKG of July 2017. Discharge Plan Discharge Clinical Impression: Chest pain, Headache Patient Disposition: Home, Self-Care Additional Instructions: Your testing in the emergency room today is reassuring. Please continue your regular medications. Please continue to monitor your blood pressure at home. Contact your primary care doctor if you have any questions about how your blood pressure is doing. Please make an appointment to follow up with your regular doctor soon. Return to the emergency room if worse. Prescriptions: No Action aspirin 81 mg tablet,delayed release (DR/EC) 81 mg PO DAILY colchicine 0.6 mg capsule 0.6 mg PO BID Farxiga 10 mg tablet 10 mg PO DAILY multivitamin Tablet 1 tab PO DAILY omeprazole 20 mg capsule,delayed release(DR/EC) 20 mg PO DAILY rosuvastatin 20 mg tablet 20 mg PO DAILY verapamil 300 mg capsule, [address] 300 mg PO BEDTIME gabapentin 600 mg tablet 600 mg PO TID Trulicity 4.5 mg/0.5 mL pen injector subcut QWEEK ketotifen fumarate 0.025 % (0.035 %) drops 1 drp ophthalmic (eye) BID fluticasone propion-salmeterol [Wixela Inhub] 500-50 mcg/dose blister with device 1 ea inhalation BID potassium chloride 20 mEq tablet,ER particles/crystals 20 meq PO QAM Referrals: Wild Alvarado MD [Primary Care Provider] - (Hypertension, chest pain, headache)
--- NOTE | 2023-04-16 19:16 | ECG_ITS ---
Test Reason : chest pain Blood Pressure : / mmHG Vent. Rate : 085 BPM Atrial Rate : 085 BPM P-R Int : 128 ms QRS Dur : 080 ms QT Int : 364 ms P-R-T Axes : 039 -46 050 degrees QTc Int : 433 ms Normal sinus rhythm Left anterior fascicular block Abnormal ECG When compared with ECG of 11-JUL-2017 19:47, T wave inversion no longer evident in Inferior leads Nonspecific T wave abnormality, improved in Lateral leads Referred By: Andressa Bender Electronically Signed By:FREDERICK ARRIOLA
[2023-04-16 19:55] LABS: MANUAL DIFF FLAG NO
--- NOTE | 2023-04-16 19:55 | MHC.EDTECH ---
PATIENT EKG TAKEN AND WAS READ BY PROVIDER ,BLOOD DRAWN AND SENT TO LAB .
[2023-04-16 19:57] LABS: Basophils Percent Auto 0.7 % (0-2); Eosinophils Absolute Auto 0.4 X10*3/uL (0.0-0.4); Hematocrit 44.1 % (42.0-52.0); Hemoglobin 14.6 g/dl (14.0-18.0); Imm Gran Abs Auto 0.01 X10*3/uL (0.00-0.03); Imm Gran Pct Auto 0.2 % (0.0-0.4); Lymphocytes Absolute Auto 2.8 X10*3/uL (1.2-4.9); Lymphocytes Percent Auto 46.6 % (20-40); Mean Corpuscular HGB Conc 33.1 g/dl (31.0-36.0); Mean Corpuscular Hemoglobin 26.7 pg (27.0-33.0); Mean Corpuscular Volume 80.8 fL (80.0-98.0); Mean Platelet Volume 8.8 fL (9.4-12.4); Monocytes Absolute Auto 0.6 X10*3/uL (0.1-1.2); Monocytes Percent Auto 10.1 % (2-11); Neutrophils Absolute Auto 2.2 x10*3/uL (2.0-8.3); Neutrophils Percent Auto 36.4 % (45-73); Platelet Count 367 X10*3/uL (160-400); Red Blood Count 5.46 X10*6/uL (4.60-5.80); Red Cell Distribution Width 13.2 % (11.0-16.0)
[2023-04-16 20:02] LABS: INTERNATIONAL NORM RATIO 0.9 (0.9-1.1); Prothrombin Time 11.4 SEC (11.1-13.3)
[2023-04-16 20:12] LABS: Alanine Aminotransferase 23 U/L (0-40); Albumin Level 3.9 g/dL (3.5-5.0); Alkaline Phosphatase 86 U/L (39-117); Anion Gap 13 (12-20); Aspartate Amino Transferase 21 U/L (5-37); Bilirubin Total 0.3 mg/dL (0.0-1.0); Blood Urea Nitrogen 7 mg/dL (9-16); Calcium 8.5 mg/dL (8.4-10.2); Carbon Dioxide 23 mmol/L (22-29); Chloride 107 mmol/L (96-108); Creatinine Clr Calc Pharmacy 84.8; Estimated Glomerular Filt Rate > 60; Glucose Random 144 mg/dL (60-115); Potassium 3.7 mmol/L (3.3-5.1); Sodium 139 mmol/L (135-145); Total Protein 7.1 g/dL (6.5-8.0)
[2023-04-16 20:19] LABS: Troponin-I High Sensitivity 4.1 ng/L (<3.5-35.0)
[2023-04-16 21:35] VITALS: BP 156/100; PULSE 84; RESP 18; TEMP 37.2; O2SAT 96
[2023-04-16 21:59] LABS: Glucose, Whole Blood 140 mg/dL (60-115)
[2023-04-17] MEDS: Acetaminophen 325 MG TABLET 975 MG PO (00:41)
[2023-04-17 01:01] LABS: Troponin-I High Sensitivity 5.4 ng/L (<3.5-35.0)
[2023-04-17 01:24] VITALS: BP 143/97; PULSE 75; RESP 20; TEMP 36.4; O2SAT 97
--- NOTE | 2023-04-17 01:29 | PC.NURSE ---
pt partner at bedside. pt calm and cooperative. pt ambulatory with cane at discharge. pt reports improved pain at discharge. pt provided with discharge packet pt verbalized understanding of discharge plan
== END 2023-04-17 01:31 | disposition home or self-care (01) ==
PROVIDERS: Physician Assistant; Emergency Provider Emergency Medicine; PCP Internal Medicine
DX: R07.89 Other chest pain (principal); R51.9 Headache, unspecified; I10 Essential (primary) hypertension; Z79.899 Other long term (current) drug therapy
CPT/HCPCS: 36415; 70450; 71045; 80053; 82947; 84484; 85025; 85610; 93005; 99283; 99285

== ENCOUNTER → 2023-04-16 19:16 | Outpatient (BNV) | payer OTHER, SELFPAY | PROVIDERS: Emergency Provider Emergency Medicine; PCP Internal Medicine; Visit Provider Internal Medicine | DX: I44.4 Left anterior fascicular block (principal); R94.31 Abnormal electrocardiogram [ECG] [EKG] | CPT/HCPCS: 93010 ==

== ENCOUNTER 2023-04-18 15:31 | Outpatient (REF) | payer OTHER, SELFPAY ==
[2023-04-18 17:50] LABS: Appearance Urine Clear; Color Urine Yellow; Glucose Urine UA >=1000 mg/dL (Negative); Leukocyte Esterase Urine Negative (Negative); Nitrite Urine Negative (Negative); PH 7.5 (5.0-9.0); UMIC TRIGGER UACC YES; Urine Blood Negative (Negative); Urine Ketones Negative (Negative); Urine Protein Negative (Neg-Trace)
[2023-04-18 17:59] LABS: Bacteria Urine None Seen (None Seen); Hyaline Casts Urine 0-2 /LPF (0-2); RBC Urine 0-2 /HPF (0-2); Squamous Epithelial Cell Urine 0-2 /HPF (0-2); WBC Urine 0-5 /HPF (0-5)
[2023-04-18 18:26] LABS: Alanine Aminotransferase 28 U/L (0-40); Albumin Level 4.1 g/dL (3.5-5.0); Alkaline Phosphatase 86 U/L (39-117); Anion Gap 9 (12-20); Aspartate Amino Transferase 28 U/L (5-37); Bilirubin Total 0.4 mg/dL (0.0-1.0); Blood Urea Nitrogen 9 mg/dL (9-16); Calcium 8.7 mg/dL (8.4-10.2); Carbon Dioxide 28 mmol/L (22-29); Chloride 106 mmol/L (96-108); Estimated Glomerular Filt Rate > 60; Glucose Random 73 mg/dL (60-115); Potassium 3.6 mmol/L (3.3-5.1); Sodium 139 mmol/L (135-145); Total Protein 7.5 g/dL (6.5-8.0)
[2023-04-18 18:42] LABS: TSH reflex Free T4 3.43 uIU/mL (0.32-4.0)
[2023-04-19 06:47] LABS: Parathyroid Hormone Intact 101.8 pg/mL (8.7-77.1)
== END 2023-04-18 15:32 | disposition home or self-care (01) ==
LOC: HO.CHCLDS 15:31
PROVIDERS: Visit Provider Family Medicine
DX: I1A.0 Resistant hypertension (principal)
CPT/HCPCS: 36415; 80053; 81001; 83970; 84443

== ENCOUNTER 2023-04-19 07:45 | Outpatient (REF) | payer OTHER, SELFPAY ==
[2023-04-19 08:50] LABS: Creatinine Urine 98.74 mg/dL; Microalbum/Creatinine Ratio Ur 60.7 ug/mg cr (<30)
== END 2023-04-19 07:46 | disposition home or self-care (01) ==
LOC: HO.LAB 07:45
PROVIDERS: Visit Provider Internal Medicine
DX: E11.65 Type 2 diabetes mellitus with hyperglycemia (principal); Z79.4 Long term (current) use of insulin
CPT/HCPCS: 82043; 82570

== ENCOUNTER 2023-04-20 12:41 | Outpatient (AMB) | payer OTHER, SELFPAY ==
--- NOTE | 2023-04-20 12:55 | MHC.OFFVIS ---
Intake Vital Signs 04/20/23 12:56 Height 5 ft 6 in Weight 184 lb 4.903 oz BMI 29.7 BP 106/64 Blood Pressure Location Lt brachial Position Sitting Pulse 74 Intake Visit Reasons: [facility] followup Intake Note: [facility] [place] follow up Spreader Operator Automatic Required: No Accompanied by: Self / Same As Patient Allergies lisinopril [LISINOPRIL] Allergy (Severe, Verified 04/20/23 12:58) SWELLING, edema bees Allergy (Severe, Uncoded 04/20/23 12:58) Anaphylaxis Medication List - Last Reconciled 04/20/23 by Leah Quezada NP-C aspirin 81 mg PO DAILY colchicine 0.6 mg PO BID dapagliflozin propanediol (Farxiga) 10 mg PO DAILY dulaglutide (Trulicity) mg subcut QWEEK fluticasone propion-salmeterol 500-50 mcg/dose (Wixela Inhub) 1 ea inhalation BID gabapentin 600 mg PO TID hydralazine 25 mg PO TID ketotifen fumarate 0.025%(0.035%) 1 drp ophthalmic (eye) BID multivitamin 1 tab PO DAILY omeprazole 20 mg PO DAILY rosuvastatin 20 mg PO DAILY spironolactone 25 mg PO DAILY verapamil ER 300 mg PO BEDTIME HPI [facility] followup HPI Details Bj is a 52-year-old male with past medical history of hypertension, hyperlipidemia, diabetes, atypical chest discomfort who presents for follow-up after recent ER visit. Today he reports that he went to the ER a few days ago because he had drooping of his mouth and garbled speech. He also had weakness of his right arm and leg. A family member is present and they confirm witnessing the symptoms. She describes that his leg was dragging. He was able to ambulate with a cane. He typically uses a cane and has some mobility issues with his right shoulder but that day things were worse. He also had a discomfort that went across his right chest. Once in the emergency room he tells me he had to wait 6 hours. By the time he was seen he says his symptoms had resolved. In the last week he has had recurrent episodes 4-5 times. He was seen by his PCP prior to his ER visit and a CT scan of the head was ordered to evaluate for CVA. That CT scan was done while he was in the emergency room and it showed no acute findings. He says he had an episode earlier this morning of the same thing where his mouth was drooping and his speech was garbled. With these episodes he is also describing some blurred vision from his right eye. He has intermittent headaches and reports a history of migraines. For his chest discomfort he describes pain across the anterior chest. He does have facial grimaces when I palpate this area. He has been doing light physical activity and has no chest discomfort brought on by normal ADLs. No concerning shortness of breath, palpitations, presyncope, syncope, PND, orthopnea or edema. He has been taking all his meds as directed. He says his blood pressure at home has been quite variable. He has recorded his systolic readings as high as 200 and as low as 100. [facility] Medical History Asthma Other and unspecified hyperlipidemia Essential hypertension Type 2 diabetes mellitus with unspecified complications Surgical History History of total left hip replacement History of carpal tunnel surgery of left wrist Family History Father Heart disease Mother No problems noted. Paternal Grandfather Heart disease Social History Alcohol intake: never Patient Tobacco Use Status: Never used Tobacco Current occupational status: unemployed Current occupation: right hand/ Review of Systems Const All systems reviewed & are unremarkable except as noted in HPI and below Denies weakness ENT Denies dizziness Card Denies chest pain with activity, Denies syncope, Denies rapid heart rate, Denies pedal edema, Denies edema, Denies leg edema, Denies lightheadedness and Denies orthopnea Resp Denies cough GI Denies hematochezia and Denies change in stool character Musc Denies abnormal gait, Denies muscle cramps, Denies muscle weakness, Denies numbness, Denies radiating pain into limb and Denies tingling Neuro Denies abnormal gait, Denies dizziness, Denies syncope, Denies numbness, Denies tingling and Denies weakness Physical Exam Vital Signs: Last Vital Signs Pulse 74 04/20/23 12:56 BP 106/64 04/20/23 12:56 BMI result Body Mass Index 29.7 Const General: cooperative, healthy appearing, comfortable and no acute distress Orientation/consciousness: patient oriented x3 Neck Neck: Yes normal visual inspection Resp Effort & Inspection: normal respiratory effort Auscultation: clear to auscultation bilaterally, no rales, no rhonchi and no wheezes Cardio Jugular venous distension: no JVD Rate: regular rate Rhythm: regular rhythm Heart sounds: S1 normal heart sound present, S2 normal heart sound present, no murmurs and no rubs Neuro General: patient oriented x3 Extrem General: Yes normal to inspection, No no pedal edema and No calf tenderness Psych Appearance: grossly normal Mental Status: mental status grossly normal Speech and movement: Normal speech and movement present Assessment & Plan Assessment & Plan (1) TIA (transient ischemic attack): Code(s): G45.9 - Transient cerebral ischemic attack, unspecified Plan: Patient describes 4-5 episodes of right-sided weakness with right facial droop and garbled speech, blurred vision right eye lasting several minutes before resolving. Family member present and confirms witnessing these episodes. He did go to the emergency room but then tells me his symptoms had resolved by the time he was seen. A CT scan of the head was done on 04/16/2023 showing no acute findings. His blood pressure in the emergency room was initially mildly elevated then lowered to the normal range without treatment. On examination today he has no facial droop, clear speech, follows direction appropriately. He has some mobility deficit to his right shoulder which he says is chronic. He ambulates with a cane which he says is his normal. Based on his description of symptoms I am concern for possible TIA. Pulse is very regular on examination. Blood pressure currently 106/64. No carotid bruit noted on exam however will check a stat carotid ultrasound to ensure there is no stenosis. Will order an urgent brain MRI with and with the got out contrast to evaluate for CVA. Will order an echocardiogram to assess for any thrombus or other abnormalities. Will order a Holter monitor to assess for the presence of atrial fibrillation. Patient instructed to seek emergency medical care in the event that his episode happens again. Informed that even though prior symptoms have resolved it is unknown if the symptoms will be long lasting. - call placed to Radiology to set up statin carotid ultrasound and it will be done at 03:30 today. Call placed to MRI to set up urgent MRI and they will call patient with a time. Cardiology office visit in 4 weeks, sooner if needed. Plan to call him with test results if anything identified prior to that time. (2) Right facial numbness: Code(s): R20.0 - Anesthesia of skin Plan: As above (3) Speech disturbance: Code(s): R47.9 - Unspecified speech disturbances Plan: As above (4) Precordial chest pain: Code(s): R07.2 - Precordial pain Plan: Prior reports of Atypical left chest discomfort, sharp stabbing pain. Also discomfort that is reproducible with palpation of the left chest region. Echocardiogram was done 08/17/2020 showing EF 60-65%, no regional wall motion abnormalities. EKG done 12/13/2021 showing normal sinus rhythm, left axis deviation, rate 78, no acute ST or T-wave abnormalities. Exercise nuclear stress test done on 01/10/2022 with good exercise capacity, report of chest discomfort that comes and goes and is worse with palpation of the area and no EKG changes of ischemia and normal myocardial perfusion imaging. Today he reports discomfort across his chest that occurs randomly and with his neurological type episodes as described above. He has facial grimacing with palpation of the anterior chest wall. Overall his symptom does seem atypical for angina. Was seen in the emergency room on 04/16/2023 and troponin levels were normal. EKG showed no acute ST or T-wave abnormalities. He will be undergoing a repeat echocardiogram with his testing as above. If further evaluation for ischemia is eventually needed then would do a CTA of the coronaries. Will hold off at present. Signs and symptoms of angina discussed with him. The need for good blood sugar, blood pressure and cholesterol control reviewed. Activity as tolerated, keep weight controlled. (5) Essential hypertension: Code(s): I10 - Essential (primary) hypertension Plan: Well controlled at present time, no changes (6) Type 2 diabetes mellitus with unspecified complications: Code(s): E11.8 - Type 2 diabetes mellitus with unspecified complications Plan: Hemoglobin A1c goal less than 7. Followed by PCP. (7) Other and unspecified hyperlipidemia: Code(s): E78.5 - Hyperlipidemia, unspecified Plan: Dahlgren LDL goal less than 70 and patient with diabetes. Continue rosuvastatin. Labs followed by his PCP Plan Time spent on chart review, documentation, interview, assessment, scheduling procedures, discussing case with blueprint cutter Orders: Orders MR head/brain wo/w con Today G45.9 - Transient cerebral ischemic attack, unspecified, R20.0 - Anesthesia of skin, R29.898 - Other symptoms and signs involving the musculoskeletal system, R47.9 - Unspecified speech disturbances US carotid duplex BI Today G45.9 - Transient cerebral ischemic attack, unspecified, R20.0 - Anesthesia of skin, R47.9 - Unspecified speech disturbances CA echo transthoracic complete Today G45.9 - Transient cerebral ischemic attack, unspecified, R07.2 - Precordial pain ECG 7 day holter monitor Today G45.9 - Transient cerebral ischemic attack, unspecified, R07.2 - Precordial pain Coding Level of Care Code Est Pt Level 5 (79753) Diagnoses TIA (transient ischemic attack) G45.9 Right facial numbness R20.0 Speech disturbance R47.9 Precordial chest pain R07.2 Essential hypertension I10 Type 2 diabetes mellitus with unspecified complications E11.8 Other and unspecified hyperlipidemia E78.5 Time Spent (min) 35
[2023-04-20 12:56] VITALS: BP 106/64; PULSE 74; BMI 29.7
== END 2023-04-20 13:40 | disposition home or self-care (01) ==
PROVIDERS: PCP Internal Medicine; Visit Provider Nurse Practitioner Family
DX: G45.9 Transient cerebral ischemic attack, unspecified (principal); R20.0 Anesthesia of skin; E11.8 Type 2 diabetes mellitus with unspecified complications; R07.2 Precordial pain; R47.9 Unspecified speech disturbances; I10 Essential (primary) hypertension; E78.5 Hyperlipidemia, unspecified
CPT/HCPCS: 99214

== ENCOUNTER → 2023-04-20 12:41 | Outpatient (BNVA) | payer OTHER, SELFPAY | PROVIDERS: PCP Internal Medicine; Visit Provider Nurse Practitioner Family | DX: R20.0 Anesthesia of skin (principal); R47.9 Unspecified speech disturbances; R07.2 Precordial pain; I10 Essential (primary) hypertension; E11.8 Type 2 diabetes mellitus with unspecified complications; E78.5 Hyperlipidemia, unspecified | CPT/HCPCS: 99212 ==

== ENCOUNTER 2023-04-20 15:04 | Outpatient (REF) | payer OTHER, SELFPAY ==
--- NOTE | ~2023-04-20 | US_ITS ---
EXAMINATION: US EXTRACRANIAL CAROTID DUPLEX, BILATERAL CLINICAL INFORMATION: Right facial numbness. TIA. COMPARISON: None available. TECHNIQUE: Real-time ultrasound and Doppler techniques (integrating B-mode 2-D vascular images, Doppler spectral analysis and color-flow Doppler imaging) were utilized to interrogate the extracranial carotid arteries, the vertebral arteries and proximal subclavian arteries bilaterally. The degree of stenosis is determined by criteria similar to NASCET. FINDINGS: Right Side: 1. There is no atherosclerotic plaque seen in the bifurcation/proximal ICA region. 2. The common carotid artery PSV proximally is 71 cm/s and distally 84 cm/s. 3. The proximal internal carotid artery velocities are 75 cm/s systolic and 24 cm/s diastolic. 4. The proximal external carotid artery PSV is 65 cm/s. 5. The vertebral artery shows antegrade flow. 6. The subclavian artery waveforms are normal. 7. There is a 2.9 x 0.9 x 3.5 cm lymph node at the carotid bifurcation. It has an echogenic medulla and hypoechoic cortex suggestive of normal lymph node pattern. Left Side: 1. There is no atherosclerotic plaque seen in the bifurcation/proximal ICA region. 2. The common carotid artery PSV proximally is 108 cm/s and distally 102 cm/s. 3. The proximal internal carotid artery velocities are 79 cm/s systolic and 25 cm/s diastolic. 4. The proximal external carotid artery PSV is 105 cm/s. 5. The vertebral artery shows normal flow. 6. The subclavian artery waveforms are normal. 7. The left internal carotid artery is very tortuous US/US carotid duplex BI IMPRESSION: 1. RIGHT: No hemodynamically significant stenosis in either carotid artery. 2. LEFT: No hemodynamically significant stenosis in either carotid artery 3. There is normal antegrade flow seen in both vertebral arteries.
== END 2023-04-20 15:05 | disposition home or self-care (01) ==
LOC: HO.HMGCX 15:04
PROVIDERS: PCP Internal Medicine; Visit Provider Nurse Practitioner Family
DX: G45.9 Transient cerebral ischemic attack, unspecified (principal); R20.0 Anesthesia of skin; R47.9 Unspecified speech disturbances
CPT/HCPCS: 93880

== ENCOUNTER 2023-04-23 10:20 | Outpatient (REF) | payer OTHER, SELFPAY ==
--- NOTE | ~2023-04-23 | US_ITS ---
EXAMINATION: ULTRASOUND RENAL WITH DOPPLER CLINICAL INFORMATION: Resistant hypertension. COMPARISON: None. TECHNIQUE: Real-time grayscale, color Doppler, and duplex Doppler evaluation of the kidneys and renal vasculature was performed. FINDINGS: RENAL MEASUREMENTS: Right: 11.1 x 5.3 x 6.9 cm (Sag x AP x TV) Left: 10.6 x 5.2 x 6.3 cm (Sag x AP x TV) The renal parenchyma appears normal. No hydronephrosis or nephrolithiasis. DOPPLER INTERROGATION: AORTA: Mid aorta: 69 cm/sec RIGHT MAIN RENAL ARTERY: Proximal: 91 cm/sec Mid: 73 cm/sec Distal: 125 cm/sec LEFT MAIN RENAL ARTERY: Proximal: 87 cm/sec Mid: 90 cm/sec Distal: 51 cm/sec RENAL-AORTIC RATIO (RAR): Right: 1.8 Left: 1.3 SEGMENTAL RESISTIVE INDICES: Right: 0.59-0.66 Left: 0.58-0.61 RENAL VEINS: Right: Patent with normal waveform. Left: Patent with normal waveform. US/US renal doppler IMPRESSION: No evidence of hemodynamically significant renal artery stenosis.
--- NOTE | ~2023-04-23 | US_ITS ---
EXAMINATION: ULTRASOUND RENAL WITH DOPPLER CLINICAL INFORMATION: Resistant hypertension. COMPARISON: None. TECHNIQUE: Real-time grayscale, color Doppler, and duplex Doppler evaluation of the kidneys and renal vasculature was performed. FINDINGS: RENAL MEASUREMENTS: Right: 11.1 x 5.3 x 6.9 cm (Sag x AP x TV) Left: 10.6 x 5.2 x 6.3 cm (Sag x AP x TV) The renal parenchyma appears normal. No hydronephrosis or nephrolithiasis. DOPPLER INTERROGATION: AORTA: Mid aorta: 69 cm/sec RIGHT MAIN RENAL ARTERY: Proximal: 91 cm/sec Mid: 73 cm/sec Distal: 125 cm/sec LEFT MAIN RENAL ARTERY: Proximal: 87 cm/sec Mid: 90 cm/sec Distal: 51 cm/sec RENAL-AORTIC RATIO (RAR): Right: 1.8 Left: 1.3 SEGMENTAL RESISTIVE INDICES: Right: 0.59-0.66 Left: 0.58-0.61 RENAL VEINS: Right: Patent with normal waveform. Left: Patent with normal waveform. US/US renal BI IMPRESSION: No evidence of hemodynamically significant renal artery stenosis.
== END 2023-04-23 10:21 | disposition home or self-care (01) ==
LOC: HO.HMGCX 10:20
PROVIDERS: PCP Internal Medicine; Visit Provider Family Medicine
DX: I10 Essential (primary) hypertension (principal); I1A.0 Resistant hypertension
CPT/HCPCS: 76775; 93975

== ENCOUNTER 2023-04-26 09:42 | Outpatient (REF) | payer OTHER, SELFPAY | END 2023-04-26 09:43 | disposition home or self-care (01) | LOC: HO.MRI 09:42 | PROVIDERS: PCP Internal Medicine; Visit Provider Nurse Practitioner Family | DX: Z13.89 Encounter for screening for other disorder (principal) ==

== ENCOUNTER → 2023-04-27 07:41 | Outpatient (REF) | payer OTHER, SELFPAY ==
--- NOTE | 2023-04-27 07:45 | CA_ITS ---
Transthoracic Echocardiogram Patient (Last, First, Middle): Bj Myers, Gender: Male Date of : 1970 Age: 52 Procedure Date: 04/27/2023 Procedure Type: Transthoracic Echocardiogram Location: OP Height: 167.64 cm Weight: 79.38 kg BSA: 1.89 m2 Heart Rate: bpm BP: 136 / 80 mmHg Supplier Quality: NETO Referring MD: Leah Quezada CAR SCRUBBER-Nathalie Symptoms: G45.9 - Transient cerebral ischemic attack, unspecified Study Quality: Fair ECG Rhythm: Sinus Conclusions: - Normal left ventricular size and systolic function. There is moderately increased left ventricular wall thickness. The visually estimated ejection fraction is between 55-60%. There is no evidence of regional wall motion abnormalities. Diastolic function is normal for age. - Normal right ventricular cavity size and systolic function. - There is no evidence of interatrial shunt by agitated saline. Findings Left Ventricle Normal left ventricular size and systolic function. There is moderately increased left ventricular wall thickness. The visually estimated ejection fraction is between 55-60%. There is no evidence of regional wall motion abnormalities. Diastolic function is normal for age. Right Ventricle Normal right ventricular cavity size and systolic function. Atria The left atrium is normal in size. There is no evidence of interatrial shunt by agitated saline. The right atrium is normal in size. Aortic Valve Normal aortic valve structure and function. There is no aortic valve stenosis. There is no aortic valve regurgitation. Mitral Valve Normal mitral valve structure and function. There is no mitral valve regurgitation. There is no mitral valve stenosis. Pulmonic Valve The pulmonic valve is likely normal. Tricuspid Valve Normal tricuspid valve structure and function. There is no tricuspid valve regurgitation. Normal right atrial pressure. Great Vessels All visible segments of the aorta are normal in size. The visualized portions of the pulmonary artery and branches are normal. Venous The inferior vena cava is normal in size and collapses greater than 50% with inspiration. Pericardium/Pleural There is no evidence of pericardial effusion. Prior Study Comparison No significant change compared to prior study. Measurements 2D Linear Measurements IVSd: 1.33 0.6-0.9/0.6-1.0 cm LVIDd: 3.89 3.9-5.3/4.2-5.9 cm LVIDd Index: 2.06 2.4-3.2/2.2-3.1 cm/m2 LVIDs: 2.62 2.0-3.6 cm LVPWd: 1.29 0.7-1.1 cm Ao Root: 3.00 2.1-3.5 cm LA Diam: 3.40 2.7-3.8/3.0-4.0 cm LAIDs Index: 1.80 1.5-2.3 cm/m2 LV Mass: 225.71 67-162/88-224 g LV Mass Index: 119.42 43-95/49-115 g/m2 LVOT Diam: 2.00 3.0+(-)1.3 cm 2D Systolic Function EF 4C: 49.60 >55% EF 2C: 63.30 >55% EF BiP: 57.80 >55% Mitral Valve MV Pk E: 0.87 MV PK A: 0.90 MV Decel Time: 172.00 E/A: 1.00 E'Lateral: 12.70 E'Medial: 7.40 E/E' Med: 11.80 E/E' Lat: 6.90 PHT: 50.00 MVA PHT: 4.40 Decel Wetzel: 5.07 Aortic Valve AoV Pk Errol: 1.29 AoV Mn Errol: 0.88 AoV VTI: 0.29 AoV Pk Grad: 7.00 Aov Mn Grad: 4.00 PRISCILLA Cont.VTI: 2.23 LVOT LVOT Pk Errol: 1.09 LVOT Mn Errol: 0.70 LVOT VTI: 0.20 LVOT Pk Grad: 5.00 LVOT Mn Grad: 2.00 LVOT Diam: 2.00 LVOT Area: 3.14 Diastolic Function MV Pk E: 0.87 MV Pk A: 0.90 E/A: 1.00 E'Medial: 7.40 E/E' Med: 11.80 E' Laterial: 12.70 E/E' Lat: 6.90 Right Ventricle TAPSE (mm): 27.00 TVS' Errol: 13.00 Tricuspid Valve TR Pk Errol: 2.15 TR Pk Grad: 18.00 RA Press: 3.00 RVSP: 21.00 Great Vessels Aorta Ao Root-2D: 3.00 2.0-3.7 cm Ao Asc: 2.90 2.1-3.4 cm Pulmonary Valve PV Pk Errol: 1.06 Peak PV Grad: 4.00 Updated in Other Vendor System with Status of Final Brad Hansen MD electronically signed on 04/28/2023 8:57:37 PM with status of Final
== END ==
LOC: HO.CARD 07:41
PROVIDERS: PCP Internal Medicine; Visit Provider Nurse Practitioner Family
DX: R07.2 Precordial pain (principal); G45.9 Transient cerebral ischemic attack, unspecified
CPT/HCPCS: 93306

== ENCOUNTER → 2023-04-27 07:45 | Outpatient (BNV) | payer OTHER, SELFPAY | PROVIDERS: PCP Internal Medicine; Visit Provider Internal Medicine Cardiovascular Disease | DX: R07.2 Precordial pain (principal); G45.9 Transient cerebral ischemic attack, unspecified | CPT/HCPCS: 93306 ==

== ENCOUNTER → 2023-05-07 08:32 | Outpatient (REF) | payer OTHER, SELFPAY ==
--- NOTE | 2023-05-07 08:35 | HM_ITS ---
Conclusion: 1. Patient was monitored for total period of 7 days 2. Baseline was normal sinus rhythm with average heart of 81 beats per minute 3. No significant pauses or arrhythmias noted 4. Patient marked the counter 7 times with symptoms of heart racing correlating with sinus rhythm MTDD
== END ==
LOC: HO.CARD 08:32
PROVIDERS: PCP Internal Medicine; Visit Provider Nurse Practitioner Family
DX: R07.2 Precordial pain (principal); G45.9 Transient cerebral ischemic attack, unspecified
CPT/HCPCS: 93242

== ENCOUNTER → 2023-05-07 08:35 | Outpatient (BNV) | payer OTHER, SELFPAY | PROVIDERS: PCP Internal Medicine; Visit Provider Internal Medicine Cardiovascular Disease | DX: R00.0 Tachycardia, unspecified (principal) | CPT/HCPCS: 93244 ==

== ENCOUNTER 2023-05-21 09:05 | Outpatient (AMB) | payer OTHER, SELFPAY ==
[2023-05-21 09:21] VITALS: BP 104/72; PULSE 79; BMI 30.5
--- NOTE | 2023-05-21 09:21 | MHC.OFFVIS ---
Intake Vital Signs 05/21/23 09:21 Height 5 ft 6 in Weight 188 lb 11.451 oz BMI 30.5 BP 104/72 Blood Pressure Location Lt brachial Position Sitting Pulse 79 Pulse Source Monitor Intake Visit Reasons: 4 wk follow up Supervisor Cigarette Making Department: Supervisor Cigarette Making Department Present Allergies lisinopril [LISINOPRIL] Allergy (Severe, Verified 05/21/23 09:23) SWELLING, edema bees Allergy (Severe, Uncoded 05/21/23 09:23) Anaphylaxis Medication List - Last Reconciled 05/21/23 by RAJWINDER MaddenC aspirin 81 mg PO DAILY colchicine 0.6 mg PO BID dapagliflozin propanediol (Farxiga) 10 mg PO DAILY dulaglutide (Trulicity) mg subcut QWEEK gabapentin 600 mg PO TID hydralazine 25 mg PO TID multivitamin 1 tab PO DAILY omeprazole 20 mg PO DAILY rosuvastatin 20 mg PO DAILY spironolactone 25 mg PO DAILY verapamil ER 300 mg PO BEDTIME HPI 4 wk follow up HPI Details Bj is a 52-year-old male with past medical history of hypertension, hyperlipidemia, diabetes, atypical chest discomfort who reported episode of facial droop, slurred speech and left-sided weakness on last visit who now presents for follow-up after recent testing. Today he reports that he continues to have episodes where he has numbness in his left hand and arm, weakness in his left leg and facial droop. He said he has not had episodes of slurred speech since his last visit. He notices at times that he will suddenly start dragging his leg. The episodes last a few minutes before resolving. His significant other is present and confirms the presence of mouth drooping at times. He does describe episodes with a pinched nerve in his neck, left shoulder issues and history of left hip replacement. Says he is going to see the orthopedic soon for his left knee. He was scheduled for his MRI but was unable to complete as he was claustrophobic. He is rescheduled to have an open MRI of his head done tomorrow. No lightheadedness, presyncope, syncope, falls. No chest discomfort brought on by exertion. He continues have tenderness on left chest region to palpation. No shortness of breath, PND, orthopnea or edema. Taking meds as directed. [facility] Medical History Asthma Other and unspecified hyperlipidemia Essential hypertension Type 2 diabetes mellitus with unspecified complications Surgical History History of total left hip replacement History of carpal tunnel surgery of left wrist Family History Father Heart disease Mother No problems noted. Paternal Grandfather Heart disease Social History Alcohol intake: never Patient Tobacco Use Status: Never used Tobacco Current occupational status: unemployed Current occupation: right hand/ Review of Systems Const All systems reviewed & are unremarkable except as noted in HPI and below ENT Details: episodes of facial droop Card Details: Tenderness left chest to palpation Reports chest pain, Denies rapid heart rate, Denies palpitations, Denies dyspnea and Denies dyspnea on exertion Resp Denies dyspnea and Denies dyspnea on exertion Musc Details: episodes of left leg dragging and numbness and tingling left arm and hand Endo Denies palpitations Physical Exam Vital Signs: Last Vital Signs Pulse 79 05/21/23 09:21 BP 104/72 05/21/23 09:21 BMI result Body Mass Index 30.5 Const General: cooperative, healthy appearing, comfortable and no acute distress Orientation/consciousness: patient oriented x3 Neck Neck: Yes normal visual inspection Resp Effort & Inspection: normal respiratory effort Auscultation: clear to auscultation bilaterally, no rales, no rhonchi and no wheezes Cardio Jugular venous distension: no JVD Rate: regular rate Rhythm: regular rhythm Heart sounds: S1 normal heart sound present, S2 normal heart sound present, no murmurs and no rubs Neuro General: patient oriented x3 Extrem General: Yes normal to inspection, No no pedal edema and No calf tenderness Psych Appearance: grossly normal Mental Status: mental status grossly normal Speech and movement: Normal speech and movement present Office Procedures EKG Details: Today read by me, SR, left axis, nonspecific T wave abn, rate 79, QTc 465ms [id number], Complete Assessment & Plan Assessment & Plan (1) TIA (transient ischemic attack): Code(s): G45.9 - Transient cerebral ischemic attack, unspecified Plan: On last visit Patient described 4-5 episodes of left-sided weakness with facial droop and garbled speech, blurred vision left eye lasting several minutes before resolving. Family member present and confirms witnessing these episodes. He did go to the emergency room but then tells me his symptoms had resolved by the time he was seen. A CT scan of the head was done on 04/16/2023 showing no acute findings. His blood pressure in the emergency room was initially mildly elevated then lowered to the normal range without treatment. I had concern for possible TIA and had him undergo further testing. A carotid ultrasound done on 04/20/2023 showing no carotid stenosis. An echocardiogram was done on 04/27/2023 showing EF 55-60%, no wall motion abnormalities and no intra-atrial shunting. A Holter monitor done on 05/07 for 70 he is shows sinus rhythm with average heart rate 81, no atrial fibrillation. A brain MRI was ordered however patient was unable to complete due to claustrophobia. He is having an MRI done tomorrow in an open MRI Center. Plan to call him with results. Today he reports that he continues to have episodes of intermittent mouth drooping, numbness in his left hand and arm and weakness in left leg. He says the episodes can last up to 3 minutes and resolve. Has not had recurrent slurred speech. His family member again is present and confirms witnessing these episodes. On examination today he has no deficits noted. He has good strength of each upper and lower extremity. His speech is clear and mouth is symmetrical. Further evaluation depending on MRI results. No cardiac findings for his symptoms. (2) Right facial numbness: Code(s): R20.0 - Anesthesia of skin Plan: As above (3) Speech disturbance: Code(s): R47.9 - Unspecified speech disturbances Plan: As above (4) Precordial chest pain: Code(s): R07.2 - Precordial pain Plan: Prior reports of Atypical left chest discomfort, sharp stabbing pain. Also discomfort that is reproducible with palpation of the left chest region. Echocardiogram was done 08/17/2020 showing EF 60-65%, no regional wall motion abnormalities. EKG done 12/13/2021 showing normal sinus rhythm, left axis deviation, rate 78, no acute ST or T-wave abnormalities. Exercise nuclear stress test done on 01/10/2022 with good exercise capacity, report of chest discomfort that comes and goes and is worse with palpation of the area and no EKG changes of ischemia and normal myocardial perfusion imaging. Was seen in the emergency room on 04/16/2023 and troponin levels were normal. EKG showed no acute ST or T-wave abnormalities. Today he reports tenderness in the left chest region. He does have facial grimace to palpation of that area. Overall his symptom is atypical for angina. It is most likely chest wall. The need for good blood sugar, blood pressure and cholesterol control reviewed. Activity as tolerated, keep weight controlled. (5) Essential hypertension: Code(s): I10 - Essential (primary) hypertension Plan: Well controlled at present time, no changes (6) Type 2 diabetes mellitus with unspecified complications: Code(s): E11.8 - Type 2 diabetes mellitus with unspecified complications Plan: Hemoglobin A1c goal less than 7. Followed by PCP. (7) Other and unspecified hyperlipidemia: Code(s): E78.5 - Hyperlipidemia, unspecified Plan: [place] LDL goal less than 70 and patient with diabetes. Continue rosuvastatin. Labs followed by his PCP Plan Time spent on chart review, documentation, interview, assessment, scheduling procedures, discussing case with industrial fabric cutter Coding Level of Care Code Est Pt Level 4 (82143) Diagnoses TIA (transient ischemic attack) G45.9 Right facial numbness R20.0 Speech disturbance R47.9 Precordial chest pain R07.2 Essential hypertension I10 Type 2 diabetes mellitus with unspecified complications E11.8 Other and unspecified hyperlipidemia E78.5 CPT Codes EKG - CPT: 81546-[id number], Complete ([id number]) Time Spent (min) 28
== END 2023-05-21 09:56 | disposition home or self-care (01) ==
PROVIDERS: PCP Internal Medicine; Visit Provider Nurse Practitioner Family
DX: G45.9 Transient cerebral ischemic attack, unspecified (principal); R20.0 Anesthesia of skin; R47.9 Unspecified speech disturbances; R07.2 Precordial pain; I10 Essential (primary) hypertension; E11.8 Type 2 diabetes mellitus with unspecified complications; E78.5 Hyperlipidemia, unspecified
CPT/HCPCS: 93010; 99214

== ENCOUNTER → 2023-05-21 09:05 | Outpatient (BNVA) | payer OTHER, SELFPAY | PROVIDERS: PCP Internal Medicine; Visit Provider Nurse Practitioner Family | DX: G45.9 Transient cerebral ischemic attack, unspecified (principal); R20.0 Anesthesia of skin; R47.9 Unspecified speech disturbances; R07.2 Precordial pain; E11.8 Type 2 diabetes mellitus with unspecified complications; E78.5 Hyperlipidemia, unspecified; I10 Essential (primary) hypertension | CPT/HCPCS: 93005; 99212 ==

== ENCOUNTER 2023-10-23 08:01 | Outpatient (REF) | payer OTHER, SELFPAY ==
[2023-10-23 15:26] LABS: Alanine Aminotransferase 26 U/L (0-40); Albumin Level 3.8 g/dL (3.5-5.0); Alkaline Phosphatase 74 U/L (39-117); Anion Gap 10 (12-20); Aspartate Amino Transferase 26 U/L (5-37); Bilirubin Total 0.5 mg/dL (0.0-1.0); Blood Urea Nitrogen 9 mg/dL (9-16); Calcium 8.7 mg/dL (8.4-10.2); Carbon Dioxide 26 mmol/L (22-29); Chloride 107 mmol/L (96-108); Cholesterol 120 mg/dL (<200); Estimated Glomerular Filt Rate > 60; Glucose Random 92 mg/dL (60-115); HDL Cholesterol 35 mg/dL (>40); LDL Cholesterol Calculated 58 mg/dL (<100); Potassium 3.2 mmol/L (3.3-5.1); Sodium 140 mmol/L (135-145); Total Protein 6.6 g/dL (6.5-8.0); Triglycerides 137 mg/dL (<150)
== END 2023-10-23 08:02 | disposition home or self-care (01) ==
LOC: HO.CHCLDS 08:01
PROVIDERS: Visit Provider Internal Medicine
DX: I10 Essential (primary) hypertension (principal); E78.00 Pure hypercholesterolemia, unspecified
CPT/HCPCS: 36415; 80053; 80061

== ENCOUNTER 2023-10-30 07:52 | Outpatient (AMB) | payer OTHER, SELFPAY ==
[2023-10-30 08:15] VITALS: BP 104/60; PULSE 65; BMI 29.2
--- NOTE | 2023-10-30 08:15 | A.OFFVIS_ITS ---
Vital Signs 10/30/23 08:15 Height 5 ft 6 in Weight 180 lb 12.465 oz BMI 29.2 BP 104/60 Blood Pressure Location Lt brachial Position Sitting Pulse 65 Pulse Source Monitor Intake Visit Reasons: 9 mth f/up Summer Nanny Required: No Rotary Engraver: Rotary Engraver Present Allergies lisinopril [LISINOPRIL] Allergy (Severe, Verified 10/30/23 08:18) SWELLING, edema bees Allergy (Severe, Uncoded 10/30/23 08:18) Anaphylaxis Medication List - Last Reconciled 10/30/23 by NIKOLE Madden aspirin 81 mg PO DAILY colchicine 0.6 mg PO BID dapagliflozin propanediol (Farxiga) 10 mg PO DAILY dulaglutide (Trulicity) mg subcut QWEEK gabapentin 600 mg PO TID hydralazine 25 mg PO TID multivitamin 1 tab PO DAILY omeprazole 20 mg PO DAILY rosuvastatin 20 mg PO DAILY spironolactone 25 mg PO DAILY verapamil ER 300 mg PO BEDTIME HPI HPI 9 mth f/up: Details: Bj is a 52-year-old male with past medical history of hypertension, hyperlipidemia, diabetes, atypical chest discomfort who reported had previously reported episode of facial droop, slurred speech and left-sided weakness who had MRI showing no acute findings, and holter showing no significant arrythmia who now presents for follow up. Today he reports that he has had various issues over the last few months. He does suffer from anxiety and bipolar disorder. His significant other still describes episodes of facial droop at times. He has not had any issues with garbled speech, visual changes. He reports some tingling and heaviness in his left arm. He now describes that he has a pinched cervical nerve which likely causes this symptom. He also reports having pinched nerves in his low back and prior left total hip replacement. He describes having neuropathy in his feet which can create a bilateral tingling sensation. He has pain in his left knee and is scheduled to undergo a left total knee replacement on 11/30/2023. He ambulates with a cane. He has tenderness in his left chest area which is worse with palpation. He has limited range of motion of his left shoulder. His right shoulder has good range of motion. He has no visible weakness of extremities. He does report feeling heart palpitations at times, rapid heart rates which occur randomly. No dizziness, presyncope, syncope, falls. No shortness of breath, PND, orthopnea or edema. Taking all meds as directed. Significant other is present. [facility] Medical History Asthma Other and unspecified hyperlipidemia Essential hypertension Type 2 diabetes mellitus with unspecified complications Surgical History History of total left hip replacement History of carpal tunnel surgery of left wrist Family History Father Heart disease Mother No problems noted. Paternal Grandfather Heart disease Social History Alcohol intake: never Patient Tobacco Use Status: Never used Tobacco Current occupational status: unemployed Current occupation: right hand/ Review of Systems Const Details: ambulates with cane All systems reviewed & are unremarkable except as noted in HPI and below ENT Denies dizziness Card Details: tingling in left arm and left foot. Pain left knee Reports chest pain, Denies chest pain at rest, Denies chest pain with activity, Denies rapid heart rate, Denies pedal edema, Denies edema, Denies leg edema, Denies lightheadedness, Denies palpitations, Denies dyspnea, Denies dyspnea on exertion and Denies orthopnea Resp Denies cough, Denies dyspnea and Denies dyspnea on exertion GI Denies hematochezia and Denies change in stool character Musc Denies abnormal gait, Reports limited range of motion, Reports muscle cramps, Denies muscle weakness, Denies numbness, Denies radiating pain into limb, Denies stiffness and Denies tingling Neuro Denies abnormal gait, Denies dizziness, Denies numbness and Denies tingling Endo Denies palpitations Physical Exam Vital Signs: Last Vital Signs Pulse 65 10/30/23 08:15 BP 104/60 10/30/23 08:15 BMI result Body Mass Index 29.2 Const General: cooperative, healthy appearing, comfortable and no acute distress Orientation/consciousness: patient oriented x3 Neck Neck: Yes normal visual inspection Resp Effort & Inspection: normal respiratory effort Auscultation: clear to auscultation bilaterally, no rales, no rhonchi and no wheezes Cardio Jugular venous distension: no JVD Rate: regular rate Rhythm: regular rhythm Heart sounds: S1 normal heart sound present, S2 normal heart sound present, no murmurs and no rubs Neuro General: patient oriented x3 Extrem General: Yes normal to inspection, No no pedal edema and No calf tenderness Psych Appearance: grossly normal Mental Status: mental status grossly normal Speech and movement: Normal speech and movement present Office Procedures EKG Details: Today, read by me, normal sinus rhythm, no acute ST or T-wave abnormalities, QTC 453 milliseconds, rate 65 [id number], Complete Assessment & Plan Assessment & Plan (1) TIA (transient ischemic attack): Comment: Unconfirmed Code(s): G45.9 - Transient cerebral ischemic attack, unspecified Category: Medical Plan: On prior visit he described episodes of left-sided weakness with facial droop and garbled speech, blurred vision left eye lasting several minutes before resolving. Family member present and confirms witnessing these episodes. He did go to the emergency room but then tells me his symptoms had resolved by the time he was seen. A CT scan of the head was done on 04/16/2023 showing no acute findings. His blood pressure in the emergency room was initially mildly elevated then lowered to the normal range without treatment. I had concern for possible TIA and had him undergo further testing. A carotid ultrasound done on 04/20/2023 showing no carotid stenosis. An echocardiogram was done on 04/27/2023 showing EF 55-60%, no wall motion abnormalities and no intra-atrial shunting. A Holter monitor done on 05/07/23 for 7 days shows sinus rhythm with average heart rate 81, no atrial fibrillation. A brain MRI done on 05/22/2023 showed no acute or subacute infarcts, mass, hemorrhage or significant abnormality. Patient informed of all the above. He continues to have intermittent facial droop as described by his significant other. No recurrent garbled speech or visual disturbances. He does describe having a pinched cervical nerve which is causing symptoms in his left arm. Also has issues with lower extremity neuropathy and left knee arthritis and ambulates with a cane. At this time he has no findings confirming TIA has occurred. Most of his symptoms can be explained by other medical issues. Instructed to further discuss with his PCP if he has ongoing concerns. At this time he does report intermittent heart palpitations which feel like rapid heartbeats. EKG done today showing normal sinus rhythm with no acute ST or T-wave findings, rate 65. I will order a Holter monitor again to evaluate for any SVT or possible atrial fibrillation. Plan to call him with results. Cardiology follow-up 3 months, sooner if needed (2) Right facial numbness: Code(s): R20.0 - Anesthesia of skin Category: Medical Plan: As above (3) Precordial chest pain: Code(s): R07.2 - Precordial pain Category: Medical Plan: Prior reports of Atypical left chest discomfort, sharp stabbing pain. Also discomfort that is reproducible with palpation of the left chest region. Echocardiogram was done 08/17/2020 showing EF 60-65%, no regional wall motion abnormalities. EKG done 12/13/2021 showing normal sinus rhythm, left axis deviation, rate 78, no acute ST or T-wave abnormalities. Exercise nuclear stress test done on 01/10/2022 with good exercise capacity, report of chest discomfort that comes and goes and is worse with palpation of the area and no EKG changes of ischemia and normal myocardial perfusion imaging. Was seen in the emergency room on 04/16/2023 and troponin levels were normal. EKG showed no acute ST or T-wave abnormalities. Today he reports ongoing tenderness in the left chest region. He does have facial grimace to palpation of that area. Overall his symptom is atypical for angina. It is most likely chest wall in origin. The need for good blood sugar, blood pressure and cholesterol control reviewed. Activity as tolerated, keep weight controlled. (4) Essential hypertension: Code(s): I10 - Essential (primary) hypertension Category: Medical Plan: Well controlled at present time, no changes (5) Type 2 diabetes mellitus with unspecified complications: Code(s): E11.8 - Type 2 diabetes mellitus with unspecified complications Category: Medical Plan: Hemoglobin A1c goal less than 7. Followed by PCP. (6) Other and unspecified hyperlipidemia: Code(s): E78.5 - Hyperlipidemia, unspecified Category: Medical Plan: [place] LDL goal less than 70 and patient with diabetes. Continue rosuvastatin. Labs followed by his PCP (7) Palpitation: Code(s): R00.2 - Palpitations Category: Medical Plan: As above Plan Time spent on chart review, documentation, interview, assessment, scheduling procedures, discussing case with human resources department supervisor Orders: Orders ECG 7 day holter monitor Today R00.2 - Palpitations Coding Level of Care Code Est Pt Level 4 (58569) Diagnoses TIA (transient ischemic attack) G45.9 Right facial numbness R20.0 Precordial chest pain R07.2 Essential hypertension I10 Type 2 diabetes mellitus with unspecified complications E11.8 Other and unspecified hyperlipidemia E78.5 Palpitation R00.2 CPT Codes EKG - CPT: [id number], Complete ([id number]) Time Spent (min) 28
== END 2023-10-30 08:48 | disposition home or self-care (01) ==
PROVIDERS: PCP Internal Medicine; Visit Provider Nurse Practitioner Family
DX: G45.9 Transient cerebral ischemic attack, unspecified (principal); R20.0 Anesthesia of skin; R07.2 Precordial pain; I10 Essential (primary) hypertension; E11.8 Type 2 diabetes mellitus with unspecified complications; E78.5 Hyperlipidemia, unspecified; R00.2 Palpitations
CPT/HCPCS: 93010; 99214

== ENCOUNTER → 2023-10-30 07:52 | Outpatient (BNVA) | payer OTHER, SELFPAY | PROVIDERS: PCP Internal Medicine; Visit Provider Nurse Practitioner Family | DX: G45.9 Transient cerebral ischemic attack, unspecified (principal); R20.0 Anesthesia of skin; R07.2 Precordial pain; R00.2 Palpitations; I10 Essential (primary) hypertension; E11.9 Type 2 diabetes mellitus without complications; E78.5 Hyperlipidemia, unspecified | CPT/HCPCS: 93005; 99212 ==

== ENCOUNTER → 2023-11-07 10:35 | Outpatient (REF) | payer OTHER, SELFPAY ==
--- NOTE | 2023-11-07 10:44 | HM_ITS ---
Conclusion: 1. Patient was monitored for total period of 6 days and 20 hours 2. Baseline was normal sinus rhythm with average heart of 76 beats per minute 3. No significant pauses or arrhythmias noted 4. Patient marked the counter 10 times associated with sinus rhythm MTDD
== END ==
LOC: HO.CARD 10:35
PROVIDERS: PCP Family Medicine; Visit Provider Nurse Practitioner Family
DX: R00.2 Palpitations (principal)
CPT/HCPCS: 93242

== ENCOUNTER → 2023-11-07 10:44 | Outpatient (BNV) | payer OTHER, SELFPAY | PROVIDERS: PCP Family Medicine; Visit Provider Internal Medicine Cardiovascular Disease | DX: R00.0 Tachycardia, unspecified (principal) | CPT/HCPCS: 93244 ==

== ENCOUNTER 2024-01-31 14:04 | Outpatient (AMB) | payer OTHER, SELFPAY ==
[2024-01-31 14:18] VITALS: BP 118/72; PULSE 82; BMI 27.5
--- NOTE | 2024-01-31 14:18 | MHC.OFFVIS ---
Vital Signs 01/31/24 14:18 Height 5 ft 6 in Weight 170 lb 3.15 oz BMI 27.5 BP 118/72 Blood Pressure Location Lt brachial Position Sitting Pulse 82 Pulse Source Monitor Intake Visit Reasons: 3 mth f/up Para Machine Operator Required: No Leasing Specialist: Leasing Specialist Present Allergies lisinopril [LISINOPRIL] Allergy (Severe, Verified 01/31/24 14:23) SWELLING, edema bees Allergy (Severe, Uncoded 01/31/24 14:23) Anaphylaxis Medication List - Last Reconciled 01/31/24 by Leah Quezada CHILDREN'S NURSERY ASSISTANT-C aspirin 81 mg PO DAILY jizykzrncr-xwzhppbrkvwcq-cluc 50-325-40 mg 1 tab PO Q6H PRN celecoxib (Celebrex) 200 mg PO DAILY colchicine 0.6 mg PO BID dapagliflozin propanediol (Farxiga) 10 mg PO DAILY dulaglutide (Trulicity) mg subcut QWEEK gabapentin 600 mg PO TID hydralazine 25 mg PO TID lorazepam 1 mg PO BID omeprazole 20 mg PO DAILY rosuvastatin 20 mg PO DAILY spironolactone 25 mg PO DAILY verapamil ER 300 mg PO BEDTIME HPI HPI 3 mth f/up: Details: Bj is a 52-year-old male with past medical history of hypertension, hyperlipidemia, diabetes, atypical chest discomfort with normal cardiac testing, prior concern for possible TIA with normal MRI who presents for follow-up after recent left total knee replacement. Today he reports that he has been doing well since his left total knee replacement. He still has issues with pain and swelling. He is ambulating with a cane. He has not had any chest discomfort with exertional activities. He still has some tenderness in the left chest region to firm palpation. He reports ongoing issues with pinched nerve in his neck and low back. He continues to describe symptoms of facial droop at times. He does have issues with anxiety and bipolar disorder, which may contribute to this. He has not had any other neurological type changes or deficits. He has no visible weakness of extremities. He does report feeling heart palpitations at times, rapid heart rates which occur randomly. No dizziness, presyncope, syncope, falls. No shortness of breath, PND, orthopnea or edema. Taking all meds as directed. Significant other is present. [facility] Medical History Asthma Other and unspecified hyperlipidemia Essential hypertension Type 2 diabetes mellitus with unspecified complications Surgical History Total knee replacement status History of total left hip replacement History of carpal tunnel surgery of left wrist Family History Father Heart disease Mother No problems noted. Paternal Grandfather Heart disease Social History Alcohol intake: never Patient Tobacco Use Status: Never used Tobacco Current occupational status: unemployed Current occupation: right hand/ Review of Systems Const All systems reviewed & are unremarkable except as noted in HPI and below ENT Denies dizziness Card Denies chest pain, Denies chest pain at rest, Denies chest pain with activity, Denies rapid heart rate, Denies pedal edema, Denies edema, Denies leg edema, Denies lightheadedness, Denies palpitations, Denies dyspnea, Denies dyspnea on exertion and Denies orthopnea Resp Denies cough, Denies dyspnea and Denies dyspnea on exertion GI Denies hematochezia and Denies change in stool character Musc Reports abnormal gait, Reports limited range of motion ( swelling left knee, recent left total knee replacement), Denies muscle cramps, Denies muscle weakness, Denies numbness, Denies radiating pain into limb, Denies stiffness and Denies tingling Neuro Reports abnormal gait, Denies dizziness, Denies numbness and Denies tingling Endo Denies palpitations Physical Exam Vital Signs: Last Vital Signs Pulse 82 01/31/24 14:18 BP 118/72 01/31/24 14:18 BMI result Body Mass Index 27.5 Const General: cooperative, healthy appearing, comfortable and no acute distress Orientation/consciousness: patient oriented x3 Neck Neck: Yes normal visual inspection Resp Effort & Inspection: normal respiratory effort Auscultation: clear to auscultation bilaterally, no rales, no rhonchi and no wheezes Cardio Jugular venous distension: no JVD Rate: regular rate Rhythm: regular rhythm Heart sounds: S1 normal heart sound present, S2 normal heart sound present, no murmurs and no rubs Neuro General: patient oriented x3 Extrem Other: swelling around left knee, surgical scar from left total knee replacement fully intact, ambulates with cane. General: No no pedal edema Psych Appearance: grossly normal Mental Status: mental status grossly normal Speech and movement: Normal speech and movement present Office Procedures EKG Details: today, read by me, normal sinus rhythm, left axis deviation, manual QT 380 milliseconds, QTC 444 milliseconds, rate 82 [id number], Complete Assessment & Plan Assessment & Plan (1) Precordial chest pain: Code(s): R07.2 - Precordial pain Category: Medical Plan: Prior reports of Atypical left chest discomfort, sharp stabbing pain. Also discomfort that is reproducible with palpation of the left chest region. Echocardiogram was done 08/17/2020 showing EF 60-65%, no regional wall motion abnormalities. EKG done 12/13/2021 showing normal sinus rhythm, left axis deviation, rate 78, no acute ST or T-wave abnormalities. Exercise nuclear stress test done on 01/10/2022 with good exercise capacity, report of chest discomfort that comes and goes and is worse with palpation of the area and no EKG changes of ischemia and normal myocardial perfusion imaging. Was seen in the emergency room on 04/16/2023 and troponin levels were normal. EKG showed no acute ST or T-wave abnormalities. Today he reports ongoing tenderness to firm palpation of the left chest region. He does have issues with his left shoulder with limited range of motion. His symptom is likely musculoskeletal in nature. It is atypical for angina. He did undergo his left total knee replacement without cardiac complications with the exception of sinus tachycardia. His verapamil had been held and the sinus tachycardia improved once his verapamil was restarted. The need for ongoing good blood sugar, blood pressure and cholesterol control reviewed. Activity as tolerated, keep weight controlled. Follow-up in this office 1 year, sooner if needed. (2) TIA (transient ischemic attack): Comment: Unconfirmed Code(s): G45.9 - Transient cerebral ischemic attack, unspecified Category: Medical Plan: On prior visit he described episodes of left-sided weakness with facial droop and garbled speech, blurred vision left eye lasting several minutes before resolving. Family member present and confirms witnessing these episodes. He did go to the emergency room but then tells me his symptoms had resolved by the time he was seen. A CT scan of the head was done on 04/16/2023 showing no acute findings. His blood pressure in the emergency room was initially mildly elevated then lowered to the normal range without treatment. I had concern for possible TIA and had him undergo further testing. A carotid ultrasound done on 04/20/2023 showing no carotid stenosis. An echocardiogram was done on 04/27/2023 showing EF 55-60%, no wall motion abnormalities and no intra-atrial shunting. A Holter monitor done on 05/07/23 for 7 days shows sinus rhythm with average heart rate 81, no atrial fibrillation. A brain MRI done on 05/22/2023 showed no acute or subacute infarcts, mass, hemorrhage or significant abnormality. He continues to have intermittent facial droop as described by his significant other. No recurrent garbled speech or visual disturbances. He does describe having a pinched cervical nerve which is causing symptoms in his left arm. Also has issues with lower extremity neuropathy and left knee arthritis and ambulates with a cane. He does report issues with anxiety and bipolar disorder. It is possible these are contributing to his symptoms as well. At this time he has no findings confirming TIA has occurred. Most of his symptoms can be explained by other medical issues. Instructed to further discuss with his PCP if he has ongoing concerns. Emergency care if ever needed for symptoms. (3) Right facial numbness: Code(s): R20.0 - Anesthesia of skin Category: Medical Plan: As above (4) Essential hypertension: Code(s): I10 - Essential (primary) hypertension Category: Medical Plan: Well controlled at present time, no changes. Continue hydralazine, Aldactone, verapamil. (5) Type 2 diabetes mellitus with unspecified complications: Code(s): E11.8 - Type 2 diabetes mellitus with unspecified complications Category: Medical Plan: Hemoglobin A1c goal less than 7. Followed by PCP. (6) Other and unspecified hyperlipidemia: Code(s): E78.5 - Hyperlipidemia, unspecified Category: Medical Plan: [place] LDL goal less than 70 and patient with diabetes. Continue rosuvastatin. Labs followed by his PCP (7) Palpitation: Code(s): R00.2 - Palpitations Category: Medical Plan: He does report intermittent heart palpitations, rapid heartbeats. Holter monitor done 11/07/2023 for 7 days showed sinus rhythm with average heart rate 76. No significant arrhythmias identified. Plan Time spent on chart review, documentation, interview, assessment, scheduling procedures, discussing case with customer service officer Coding Level of Care Code Est Pt Level 4 (02297) Complex EM visit Add On G2211 Diagnoses Precordial chest pain R07.2 TIA (transient ischemic attack) G45.9 Right facial numbness R20.0 Essential hypertension I10 Type 2 diabetes mellitus with unspecified complications E11.8 Other and unspecified hyperlipidemia E78.5 Palpitation R00.2 CPT Codes EKG - CPT: 64546-[id number], Complete ([id number]) Time Spent (min) 36
== END 2024-01-31 15:01 | disposition home or self-care (01) ==
PROVIDERS: PCP Internal Medicine; Visit Provider Nurse Practitioner Family
DX: R07.2 Precordial pain (principal); G45.9 Transient cerebral ischemic attack, unspecified; R20.0 Anesthesia of skin; I10 Essential (primary) hypertension; E11.8 Type 2 diabetes mellitus with unspecified complications; E78.5 Hyperlipidemia, unspecified; R00.2 Palpitations
CPT/HCPCS: 93010; 99214; G2211

== ENCOUNTER → 2024-01-31 14:04 | Outpatient (BNVA) | payer OTHER, SELFPAY | PROVIDERS: PCP Internal Medicine; Visit Provider Nurse Practitioner Family | DX: R07.2 Precordial pain (principal); I10 Essential (primary) hypertension; G45.9 Transient cerebral ischemic attack, unspecified; R20.0 Anesthesia of skin; E11.8 Type 2 diabetes mellitus with unspecified complications; E78.5 Hyperlipidemia, unspecified; R00.2 Palpitations | CPT/HCPCS: 93005; 99212 ==